=== PATIENT | male | born 1975 | race Caucasian/White ===

== ENCOUNTER 2023-10-15 15:38 | Inpatient (IN) | payer SELFPAY ==
[2023-10-15] VITALS (8 sets, daily range): BP systolic 126–153; BP diastolic 80–101; PULSE 80–107; RESP 16–35; TEMP 36.8–37.3; O2SAT 96–99; BMI 35.6
--- NOTE | 2023-10-15 16:25 | CTR_ITS ---
PROCEDURE INFORMATION: Exam: CT Abdomen And Pelvis With Contrast Exam date and time: 10/15/2023 4:48 PM Age: 48 years old Clinical indication: Nausea and vomiting; Abdominal pain; Generalized; Prior surgery; Surgery date: 6+ months; Surgery type: Hernia; Additional info: Abd pain TECHNIQUE: Imaging protocol: Computed tomography of the abdomen and pelvis with contrast. Radiation optimization: All CT scans at this facility use at least one of these dose optimization techniques: automated exposure control; mA and/or kV adjustment per patient size (includes targeted exams where dose is matched to clinical indication); or iterative reconstruction. Contrast material: OMNI 350; Contrast volume: 100 ml; Contrast route: INTRAVENOUS (IV); COMPARISON: No relevant prior studies available. RADIATION DOSE METRICS: Total DLP (mGy-cm): 1690.93 FINDINGS: Lungs: Subsegmental bibasilar atelectasis. The visualized lung bases are otherwise grossly clear. Diaphragm: No evidence of diaphragmatic defect. Liver: Hepatic steatosis. No evidence of focal hepatic lesion. Gallbladder and bile ducts: There is cholelithiasis. No inflammatory changes to suggest acute cholecystitis. No intrahepatic or extrahepatic biliary dilatation. Pancreas: Unremarkable. Spleen: Unremarkable. Adrenal glands: Unremarkable. Kidneys and ureters: No renal parenchymal abnormality. No hydronephrosis or ureteral stone. Stomach and bowel: Mild wall thickening of the distal esophagus compatible with esophagitis. No evidence of bowel obstruction or perienteric inflammatory changes. Appendix: Normal appendix. Intraperitoneal space: No evidence of free air or fluid collection. Vasculature: No aneurysmal dilatation or dissection of the abdominal aorta. The celiac trunk, SMA and IMTIAZ are grossly patent. No evidence of IVC thrombus. The portal vein, SMV and splenic veins are grossly patent. Lymph nodes: No adenopathy. Urinary bladder: Grossly unremarkable. Reproductive: Grossly unremarkable. Bones/joints: No evidence of acute fracture or aggressive osseous lesion. Prominent L4-L5 posterior disc osteophyte complex results in moderate-severe central stenosis. Consider correlation with follow-up outpatient MRI to evaluate for neural impingement. Soft tissues: No evidence of fluid collection or hematoma in the superficial soft tissues. 7 cm multi-septated fat containing ventral abdominal hernia. CT/CT abdomen pelvis w con* [id number] IMPRESSION: 1. No evidence of acute abnormality in the abdomen or pelvis. 2. Wall thickening of the distal esophagus compatible with esophagitis. Consider follow-up outpatient GI evaluation to evaluate for Vitale's esophagus.
--- NOTE | 2023-10-15 16:26 | ED_ITS ---
HPI - Nausea/Vomiting/Diarrhea 2 General: Chief complaint: Nausea/Vomiting/Diarrhea Stated complaint: throwing up for 48+ HRS Time Seen by Provider: 10/15/23 16:20 Source: patient Mode of arrival: ambulatory Limitations: no limitations History of Present Illness: 48-year-old male states he has been havi ng nausea vomiting over the last 2 days. States had multiple episodes of vomiting has not been able to tolerate anything p.o. He denies any fevers denies any diarrhea has had a history of hernia repairs in the past. Said he has had diffuse cramping pain no severe pain Associated nausea: Yes Associated symtoms: Reports nausea; Denies chest pain, dysuria or headache(s) Review of Systems 2 Const: Denies: fever(s), chills, body aches or change in appetite ENMT: Denies: throat pain or dental pain Card: Denies: chest pain Resp: Denies: dyspnea GI: Reports: abdominal pain, nausea and vomiting; Denies: diarrhea : Denies: dysuria Musc: Denies: neck pain or back pain Skin/Breast: Denies: rash Neuro: Denies: headache(s) Physical Exam 2 Const: COMMON NORMALS: no acute distress, patient oriented x3 and healthy appearing HENMT: COMMON NORMALS: normocephalic and atraumatic HEAD & SCALP: n ormocephalic and atraumatic Eye: COMMON NORMALS: Equal, round and reactive pupils present and EOMs intact bilaterally PUPIL: Yes Equal, round and reactive pupils present Neck/C-Spine: COMMON NORMALS: full ROM and supple Chest: COMMONS NORMALS: normal inspection of the chest Resp: COMMON NORMALS: normal respiratory effort Cardio: COMMON NORMALS: regular rate, regular rhythm and No murmurs present (Cardio) RATE: regular rate RHYTHM: regular rhythm GI: COMMON NORMALS: Normal to inspection, nondistended, normoactive bowel sounds present, Soft to palpation, non-tender and no masses PALPATION: Yes Soft to palpation Extremity: COMMON NORMALS: normal to inspection and full ROM Neuro: COMMON NORMALS: patient oriented x3, moves all extremities and no focal motor deficits Psych: COMMON NORMALS: mental status grossly normal, Normal thought process present and cooperative THOUGHT PROCESS: Normal thought process present Skin: COMMON NORMALS: no rashes or lesions noted and no wounds GENERAL SKIN EXAM: no rashes or lesions noted Course 2 Vital Signs: Vital signs: Vital Signs Temperature 99.2 F 10/15/23 15:56 Pulse Rate 80 10/15/23 18:36 Respiratory Rate 16 10/15/23 15:56 Blood Pressure 150/101 10/15/23 18:36 Pulse Oximetry 98 10/15/23 18:36 MDM - Nausea/Vomiting/Diarrhea Medical Decision Making Patient presents here with intractable vomiting his abdominal exam here is benign he does have an elevated white count likely stress reaction from his vomiting he has an elevated anion gap along with ketones in his urine likely from dehydration from vomiting CT showed no acute findings he has no signs of ischemic bowel I spoke to the hospitalist will admit for fluid resuscitation and to further treat his vomiting Medical Records I reviewed the patient's medical records. Lab Data I reviewed the patient's lab results. 10/15/23 16:38 10/15/23 16:38 Radiology Impressions Abdomen/Pelvis CT 10/15/23 16:25 IMPRESSION: 1. No evidence of acute abnormality in the abdomen or pelvis. 2. Wall thickening of the distal esophagus compatible with esophagitis. Consider follow-up outpatient GI evaluation to evaluate for Vitale's esophagus. Laboratory Results WBC 19.25 10^3/uL (3.29-11.43) H 10/15/23 16:38 RBC 6.28 10^6/uL (3.85-5.65) H 10/15/23 16:38 Hgb 18.10 g/dL (11.27-16.99) H 10/15/23 16:38 Hct 53.4 % (37-53) H 10/15/23 16:38 MCV 85.0 fl (82-101) 10/15/23 16:38 MCH 28.8 pg (27-33) 10/15/23 16:38 MCHC 33.9 g/dL (30-55) 10/15/23 16:38 RDW 12.4 % (12.1-15.1) 10/15/23 16:38 Plt Count 384 10^3/cmm (157-399) 10/15/23 16:38 MPV 9.5 fL (7.4-10.4) 10/15/23 16:38 Neut % (Auto) 87.9 % 10/15/23 16:38 Lymph % (Auto) 6.3 % 10/15/23 16:38 Angelina % (Auto) 5.2 % 10/15/23 16:38 Eos % (Auto) 0.0 % 10/15/23 16:38 Baso % (Auto) 0.1 % 10/15/23 16:38 Neut # (Auto) 16.90 10^3/uL (1.8-7.7) H 10/15/23 16:38 Lymph # (Auto) 1.2 10^3/uL (0.8-4.8) 10/15/23 16:38 Angelina # (Auto) 1.0 10^3/uL (0.2-0.9) H 10/15/23 16:38 Eos # (Auto) 0.0 10^3/uL (0.0-0.8) 10/15/23 16:38 Baso # (Auto) 0.0 10^3/uL (0.0-0.1) 10/15/23 16:38 Nucleated RBC % (auto) 0 % 10/15/23 16:38 Nucleated RBCs # 0.0 /100WBC 10/15/23 16:38 Specimen Type Arterial 10/15/23 17:57 Sample Site Radial, right 10/15/23 17:57 ABG pH 7.39 (7.35-7.45) 10/15/23 17:57 ABG pCO2 27.4 mmHg (35-45) L 10/15/23 17:57 ABG pO2 93.3 mmHg (80.0-100.0) 10/15/23 17:57 ABG PO2/FiO2 Ratio 0 10/15/23 17:57 ABG HCO3 16.5 mmol/L (22-26) L 10/15/23 17:57 ABG Base Excess -6.5 mmol/L (-2.0-2.0) L 10/15/23 17:57 Blas Test Pos 10/15/23 17:57 Hematocrit 54.5 % (42-52) H 10/15/23 17:57 O2 Delivery Device Room air 10/15/23 17:57 FiO2 21.0 % 10/15/23 17:57 Textile Machinery Sales Representative ID Ed 10/15/23 17:57 Sodium 134 mmol/L (136-145) L 10/15/23 16:38 Potassium 4.1 mmol/L (3.5-5.1) 10/15/23 16:38 Chloride 91 mmol/L (98-107) L 10/15/23 16:38 Carbon Dioxide 17 mmol/L (22-29) L 10/15/23 16:38 Anion Gap 30.1 (5-19) H 10/15/23 16:38 BUN 22 mg/dL (6-20) H 10/15/23 16:38 Creatinine 0.9 mg/dL (0.7-1.2) 10/15/23 16:38 GFR Calculation 90.8 mL/min (90-130) 10/15/23 16:38 Glucose 341 mg/dL (65-115) H 10/15/23 16:38 Calculated Osmolality 295 mOsm/kg (285-295) 10/15/23 16:38 Lactic Acid 2.1 mmol/L (0.5-2.2) 10/15/23 16:38 Calcium 9.8 mg/dL (8.5-10.5) 10/15/23 16:38 Total Bilirubin 1.1 mg/dL (0.15-1.2) 10/15/23 16:38 AST 10 U/L (0-40) 10/15/23 16:38 ALT 13 U/L (0-41) 10/15/23 16:38 Alkaline Phosphatase 135 U/L (40-130) H 10/15/23 16:38 Total Protein 8.3 g/dL (6.6-8.7) 10/15/23 16:38 Albumin 4.7 g/dL (3.5-5.2) 10/15/23 16:38 Globulin 3.6 g/dL (1.3-4.6) 10/15/23 16:38 Lipase 14 U/L (13-60) 10/15/23 16:38 Urine Color Yellow (Yellow) 10/15/23 18:24 Urine Appearance Clear (CLEAR) 10/15/23 18:24 Urine pH 5 (5-7) 10/15/23 18:24 Ur Specific [place] 1.015 (1.005-1.030) 10/15/23 18:24 Urine Protein Trace (Negative) 10/15/23 18:24 Urine Glucose (UA) 4+ (Normal) H 10/15/23 18:24 Urine Ketones 3+ (Negative) H 10/15/23 18:24 Urine Blood Neg (Negative) 10/15/23 18:24 Urine Nitrate Negative (Negative) 10/15/23 18:24 Urine Bilirubin Neg (Negative) 10/15/23 18:24 Urine Urobilinogen Norm mg/dL (Negative) 10/15/23 18:24 Ur Leukocyte Esterase Negative (Negative) 10/15/23 18:24 Amorphous Sediment Not Reportable 10/15/23 18:24 All radiology interpretation(s) finalized by discharge Discharge Plan Discharge Patient Disposition: Admitted As Inpatient Clinical Impression: Intractable vomiting, Dehydration Condition: Stable Coding Level of Care Code ED Postage Machine Operator for Roge Andujar
[2023-10-15] MEDS: sodium chloride 0.9% 1,000 ML 999 ML IV ×2 (16:37→17:53)
[2023-10-15] MEDS: ondansetron 2 mg/ML SDV 2 mL 4 MG IVP ×2 (16:39→23:34)
[2023-10-15] MEDS: iohexol 350 mg/mL 500 mL Btl (per mL) IV (16:48)
[2023-10-15 16:50] LABS: Basophils % 0.1 %; Hematocrit 53.4 % (37-53); Lymphocytes # 1.2 10^3/uL (0.8-4.8); Lymphocytes % 6.3 %; Mean Corpuscular HGB Conc 33.9 g/dL (30-55); Mean Corpuscular Hemoglobin 28.8 pg (27-33); Mean Platelet Volume 9.5 fL (7.4-10.4); Monocytes % 5.2 %; Neutrophils % 87.9 %; Nucleated Red Blood Cells % 0 %; Platelet Count 384 10^3/cmm (157-399); Red Blood Count 6.28 10^6/uL (3.85-5.65); Red Cell Distribution Width 12.4 % (12.1-15.1); White Blood Count 19.25 10^3/uL (3.29-11.43)
[2023-10-15 17:05] LABS: Alanine Aminotransferase 13 U/L (0-41); Albumin Level 4.7 g/dL (3.5-5.2); Alkaline Phosphatase 135 U/L (40-130); Anion Gap 30.1 (5-19); Aspartate Amino Transferase 10 U/L (0-40); Blood Urea Nitrogen 22 mg/dL (6-20); Calcium 9.8 mg/dL (8.5-10.5); Carbon Dioxide 17 mmol/L (22-29); Chloride 91 mmol/L (98-107); Creatinine Clr Calc Pharmacy 136.7613; Globulin 3.6 g/dL (1.3-4.6); Glomerular Filtration Rate 90.8 mL/min (90-130); Glucose 341 mg/dL (65-115); Lipase 14 U/L (13-60); Osmolality Calculated 295 mOsm/kg (285-295); Potassium 4.1 mmol/L (3.5-5.1); Sodium 134 mmol/L (136-145); Total Bilirubin 1.1 mg/dL (0.15-1.2); Total Protein 8.3 g/dL (6.6-8.7)
[2023-10-15 17:30] LABS: Lactic Sepsis W/Reflex 2.1 mmol/L (0.5-2.2)
[2023-10-15 18:09] LABS: ABG PCO2 27.4 mmHg (35-45); ABG PH Result 7.39 (7.35-7.45); Arterial Blood Gas Hematocrit 54.5 % (42-52); Base Excess ABG -6.5 mmol/L (-2.0-2.0); Blood Gas Allen Test Pos; Blood Gas Operator Identificat ED; Blood Gas Sample Site Radial, right; Blood Gas Sample Type Arterial; HCO3 ABG 16.5 mmol/L (22-26); Oxygen Device ROOM AIR; PO2 ABG 93.3 mmHg (80.0-100.0); PO2 FiO2 Ratio Arterial Blood 0
[2023-10-15 18:49] LABS: Specific Gravity, Urine 1.015 (1.005-1.030); Urine Appearance Clear (CLEAR); Urine Color Yellow (Yellow); pH Urine 5 (5-7)
[2023-10-15 18:50] LABS: Add Urine Microscopic? YES; Bilirubin Urine Neg (Negative); Blood Urine Neg (Negative); Glucose Urine UA 4+ (Normal); Ketones Urine 3+ (Negative); Leukocyte Esterase Urine Negative (Negative); Nitrate Urine Negative (Negative); Protein Urine Trace (Negative); Urobilinogen Urine Norm (Negative)
[2023-10-15 18:54] LABS: Reflex Lactate Order REFLEX LACTIC ORDERD
[2023-10-15 19:20] LABS: Add Urine Culture? No; WBC Urine 0-4 /hpf (0-5)
[2023-10-15 19:40] LABS: Lactic Acid level (Lactate) 1.6 mmol/L (0.5-2.2)
--- NOTE | 2023-10-15 20:20 | P.HP_ITS ---
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 No fever chest pain or shortness of breath. Patient does not smoke or drink alcohol. No previous diagnosis of diabetes. Patient is stating that he has lost significant weight he used to weigh 400 pounds now he is down to 250 pounds in the last few months he has lost 30 pounds, he has not noticed blurry vision, frequent urination or polyphagia. In the ER patient was acidotic with signs of dehydration, I requested A1c level along serum ketones to rule out DKA, lactic acid is normal but his anion gap is high with acidosis Significant leukocytosis of 19,000, CT abdomen pelvis esophagitis, no other remarkable findings Review of Systems 2 Const: Reports: chills, body aches, fatigue and malaise Eyes: Denies: change in vision ENMT: Denies: throat pain Card: Denies: chest pain Resp: Denies: dyspnea GI: Denies: abdominal pain : Denies: flank pain Musc: Denies: neck pain Skin/Breast: Denies: rash Neuro: Denies: headache(s) Psych: Denies: anxiety Medications/Allergies Allergies Allergy/AdvReac Type Severity Reaction Status Date / Time No Known Allergies Allergy Verified 10/15/23 15:58 PFSH Acute 2 PFSH: Medical History (Updated 10/15/23 @ 21:09 by Chris Mane MD) No pertinent past medical history Surgical History H/O umbilical hernia repair Family History (Updated 10/15/23 @ 21:09 by Chris Mane MD) Other Diabetes Diabetes mellitus, type 2 Social History (Updated 10/15/23 @ 21:10 by Chris Mane MD) Smoking and tobacco/nicotine status: former use of tobacco/nicotine Alcohol intake: never Household members: family Housing: House Vitals/I&O/Wt Last Vital Signs Temp 99.2 F 10/15/23 15:56 Pulse 80 10/15/23 18:36 Resp 16 10/15/23 15:56 BP 150/101 10/15/23 18:36 Pulse Ox 98 10/15/23 18:36 10/15/23 10/15/23 10/15/23 06:59 14:59 22:59 Intake Total 1999 Balance 1999 Weight last 48 hrs Weight 119.295 kg Physical Exam 2 Narrative: Morbid obese male Currently complain of nausea Assessment Abdomen nontender Distended Gallstones present No sign of rigidity guarding or peritonitis Pleasant cooperative Nonfocal neuroexam Currently on room air Hemoglobin stable at the bedside Data 10/15/23 16:38 10/15/23 16:38 A&P Assessment and plan (1) Intractable vomiting: (2) Dehydration: (3) Metabolic acidosis: (4) Hyperglycemia: Plan Intractable nausea vomiting No sign of pancreatitis Rule out DKA Check serum ketones and hemoglobin A1c level Hyperglycemia with metabolic acidosis Lactic acid normal No significant uremia Patient does not take any medications at home Metabolic acidosis, High anion gap acidosis No lactic acidemia Rule out DKA No significant uremia No concern for iron poisoning Patient denies alcohol, check drug screen Will keep patient on clear liquid diet Start IV fluids Full code DVT prophylaxis on board Significant hemoconcentration related to dehydration Last probably was on Thursday Continue IV fluids Polycythemia related to dehydration Significant leukocytosis likely stress leukemoid reaction Considering recurrent nausea vomiting to complete the workup I will order request EKG and troponin For metabolic syndrome I will request lipid panel, TSH, B12, echo Attestations 2 Medical Necessity Statement*: Anticipating more than 2 midnights for significant dehydration patient not able to eat anything at this point Diagnoses Intractable vomiting R11.10 Dehydration E86.0 Metabolic acidosis E87.20 Hyperglycemia R73.9
[2023-10-15 21:04] LABS: Ketone (Acetest) Serum Negative (Negative)
[2023-10-15] MEDS: sodium chloride 0.9% 1,000 ML 100 ML IV (21:09)
--- NOTE | 2023-10-15 21:12 | USCV_ITS ---
Say Bosch Age: 48 Gender: M : 1975 Exam Date: 10/15/2023 21:45 Ordering Phys: Chris Mane MD Technologist: WHIT Exam Location: [facility] [place] Indication: UA. No history of cardiac intervention per patient. BP: 132 / 80 HR: 85 Rhythm: Sinus Technical Quality: Adequate MEASUREMENTS (Male / Female) Normal Values 2D ECHO LV Diastolic Diameter PLAX 4.6 cm 4.2 - 5.9 / 3.9 - 5.3 cm IVS Diastolic Thickness 1.7 cm 0.6 - 1.0 / 0.6 - 0.9 cm IVS Systolic Thickness 1.6 cm LVPW Diastolic Thickness 1.2 cm 0.6 - 1.0 / 0.6 - 0.9 cm LVPW Systolic Thickness 1.5 cm LV Ejection Fraction 2D Teich 64.3 % LV Ejection Fraction MOD 2C 50.1 % LV Ejection Fraction 2C AL 50.4 % LA Diameter 3.2 cm Aorta at Sinotubular Diameter 4.0 cm IVC Diameter 1.1 cm M-MODE LA Ao Ratio MM 1.2 AV Cusp Separation MM 2.8 cm DOPPLER LVOT Peak Velocity 82.0 cm/s MV Peak Velocity 89.0 cm/s MV Area PHT 4.0 cm squared Mitral E to A Ratio 1.2 TV Peak E Velocity 55.0 cm/s PV Peak Velocity 101.0 cm/s FINDINGS Left Ventricle Left ventricle is normal size. LV systolic function is normal with EF of 60-65%. No regional wall motion abnormalities are seen. Right Ventricle Normal in size and function Right Atrium Normal in size Left Atrium Normal in size Mitral Valve Structurally normal mitral valve. Trace mitral regurgitation. Aortic Valve Grossly normal Tricuspid Valve Trace tricuspid regurgitation. Insufficient TR jet to calculate RVSP Pulmonic Valve Mild pulmonic regurgitation. Pericardium Normal Aorta Ascending aorta is dilated with diameter of 4.22cm IVC Appears to be normal CONCLUSIONS LV systolic function is normal with EF of 60-65% Trace mitral regurgitation Trace tricuspid regurgitation. Mild pulmonic regurgitation Ascending aorta is dilated with diameter of 4.22cm No comparison studies are available. Ricky Weinstein MD (Electronically Signed) Final Date: 16 October 2023 09:14 S
[2023-10-15 21:21] LABS: Estmated Average Glucose 246; Hemoglobin A1C 10.2 % (4.0-6.0)
[2023-10-15 21:33] LABS: Procalcitonin 0.06 ng/mL (0-0.5); Thyroid Stimulating Hormone 0.98 uIU/mL (0.27-4.20); Vitamin B12 1721 pg/mL (232-1245)
[2023-10-15 21:59] LABS: Troponin(5th) Baseline 11 ng/L (0-15)
[2023-10-15 22:01] LABS: Alcohol Level < 10 mg/dL (0-10)
[2023-10-15] MEDS: metoclopramide 5 mg/mL SDV 2 mL IVP (22:16)
[2023-10-15] MEDS: enoxaparin 40 mg/0.4 mL Syringe SUBCUT (22:16)
[2023-10-15] MEDS: lactated ringers 1,000 ML 100 ML IV (22:33)
--- NOTE | 2023-10-15 23:23 | PC.NURSE ---
Report called to AYDEE Olvera and patient transferred to ICU via bed. All belongings are with patient and .
[2023-10-15 23:43] LABS: Troponin 5 2HR 11.39 ng/L (0-15); Troponin 5 2HR Delta 0.39 ABS# (0-10)
[2023-10-15 23:44] LABS: Blood Urea Nitrogen 22 mg/dL (6-20); Calcium 8.6 mg/dL (8.5-10.5); Carbon Dioxide 16 mmol/L (22-29); Chloride 98 mmol/L (98-107); Glomerular Filtration Rate 121.4 mL/min (90-130); Glucose 251 mg/dL (65-115); Osmolality Calculated 292 mOsm/kg (285-295); Sodium 135 mmol/L (136-145)
[2023-10-15] MEDS: sodium bicarbonate 150 MEQ in dextrose 5% 1,000 ML 100 MEQ IV (23:59)
[2023-10-16] VITALS (64 sets, daily range): BP systolic 97–170; BP diastolic 60–102; PULSE 71–110; RESP 6–29; TEMP 36.2–37.1; O2SAT 92–99
[2023-10-16] MEDS: sodium chlor 0.9% + KCl 40 mEq 40 MEQ/1,000 ML BAG 100 MEQ IV (00:01)
[2023-10-16] MEDS: sodium bicarbonate 8.4% 1 mEq/mL 50mL Syr 150 MEQ (00:02)
[2023-10-16] MEDS: insulin regular-human 250 UNIT in sodium chloride 0.9% 250 ML 12.6300000000000008 UNIT IV (00:09)
[2023-10-16 00:24] LABS: Glucose Point of Care 252 mg/dL (70-110)
[2023-10-16 01:28] LABS: Glucose Point of Care 185 mg/dL (70-110)
[2023-10-16 02:18] LABS: Glucose Point of Care 191 mg/dL (70-110)
--- NOTE | 2023-10-16 03:12 | ECG_ITS ---
[facility] Test Date: 2023-10-16 Pat Name: Say Bosch Department: Room: ICU01 Gender: Male Clinical Immunologist: : 1975 Requested By: Chris Mane Order Number: [id number] [place] MD: Ricky Weinstein M.D. Measurements Intervals [place] Rate: 109 P: 39 MD: 147 QRS: 26 QRSD: 85 T: 31 QT: 334 QTc: 450 Interpretive Statements SINUS TACHYCARDIA WITH OCCASIONAL VENTRICULAR PREMATURE COMPLEXES No previous ECG available for comparison Electronically Signed On 10-16-2023 8:16:12 CDT by Ricky Weinstein M.D. [id number]
[2023-10-16 03:23] LABS: Basophils % 0.2 %; Eosinophils % 0.1 %; Hematocrit 47.7 % (37-53); Lymphocytes # 1.6 10^3/uL (0.8-4.8); Lymphocytes % 9.8 %; Mean Corpuscular Volume 85.5 fl (82-101); Mean Platelet Volume 9.4 fL (7.4-10.4); Monocytes # 1.4 10^3/uL (0.2-0.9); Monocytes % 8.7 %; Neutrophils # 13.34 10^3/uL (1.8-7.7); Neutrophils % 80.7 %; Nucleated Red Blood Cells % 0 %; Platelet Count 309 10^3/cmm (157-399); Red Blood Count 5.58 10^6/uL (3.85-5.65); Red Cell Distribution Width 12.4 % (12.1-15.1); White Blood Count 16.52 10^3/uL (3.29-11.43)
[2023-10-16 03:24] LABS: Glucose Point of Care 184 mg/dL (70-110)
[2023-10-16 03:46] LABS: Troponin 5 6HR 12.06 ng/L (0-15); Troponin 5 6HR Delta 1.06 ng/L (0-12)
[2023-10-16 03:49] LABS: Phosphorus 2.1 mg/dL (2.5-4.5)
[2023-10-16 03:50] LABS: Amphetamines Screen Urine Negative (Negative); Barbiturates Screen Urine Negative (Negative); Benzodiazepines Screen Urine Negative (Negative); Cocaine Screen Urine Negative (Negative); Opiate Screen Urine Negative (Negative); PCP Screen Urine Negative (Negative); THC Screen Urine Positive (Negative)
[2023-10-16 03:58] LABS: Alanine Aminotransferase 11 U/L (0-41); Albumin Level 4.1 g/dL (3.5-5.2); Alkaline Phosphatase 109 U/L (40-130); Aspartate Amino Transferase 8 U/L (0-40); Blood Urea Nitrogen 22 mg/dL (6-20); C Reactive Protein 6.1 mg/L (0.0-4.9); Calcium 8.7 mg/dL (8.5-10.5); Carbon Dioxide 19 mmol/L (22-29); Chloride 102 mmol/L (98-107); Creatinine Clr Calc Pharmacy 205.1419; Globulin 2.5 g/dL (1.3-4.6); Glucose 194 mg/dL (65-115); Magnesium 2.1 mg/dL (1.7-2.3); Osmolality Calculated 295 mOsm/kg (285-295); Sodium 138 mmol/L (136-145); Total Protein 6.6 g/dL (6.6-8.7)
[2023-10-16 04:00] LABS: Anion Gap 21.1 (5-19); Potassium 4.1 mmol/L (3.5-5.1)
[2023-10-16 04:18] LABS: Glucose Point of Care 204 mg/dL (70-110)
[2023-10-16 05:28] LABS: Glucose Point of Care 210 mg/dL (70-110)
[2023-10-16] MEDS: ondansetron 2 mg/ML SDV 2 mL 4 MG IVP ×4 (05:36→19:37)
[2023-10-16 06:13] LABS: Glucose Point of Care 208 mg/dL (70-110)
[2023-10-16 07:36] LABS: Glucose Point of Care 268 mg/dL (70-110)
[2023-10-16] MEDS: D5-NS 0.45% + KCL 20 mEq 20 MEQ/1,000 ML BAG 75 MEQ IV ×2 (07:59→17:38)
[2023-10-16 08:12] LABS: Anion Gap 21.9 (5-19); Blood Urea Nitrogen 20 mg/dL (6-20); Calcium 8.9 mg/dL (8.5-10.5); Carbon Dioxide 20 mmol/L (22-29); Chloride 100 mmol/L (98-107); Creatinine Clr Calc Pharmacy 210.6688; Glucose 236 mg/dL (65-115); Osmolality Calculated 296 mOsm/kg (285-295); Potassium 3.9 mmol/L (3.5-5.1); Sodium 138 mmol/L (136-145)
[2023-10-16 10:47] LABS: Glucose Point of Care 239 mg/dL (70-110)
--- NOTE | 2023-10-16 12:57 | P.PN_ITS ---
Subjective 2 Subjective: Seen this morning. Anion gap 21.9. Still on insulin drip. Awaiting next BMP. A1c 10.2. Patient states he feels better. Vitals/I&O/Wt Last Vital Signs Temp 98.8 F 10/16/23 09:45 Pulse 83 10/16/23 12:45 Resp 17 10/16/23 07:42 BP 136/94 10/16/23 12:45 Pulse Ox 95 10/16/23 12:45 O2 Del Method Room Air 10/16/23 07:42 10/15/23 10/16/23 10/16/23 22:59 06:59 14:59 Intake Total 2180 / 2180 27.447 / 2207.447 1.481 / 1.481 Output Total 900 / 900 Balance 2180 / 2180 -872.553 / 1307.447 1.481 / 1.481 Weight last 48 hrs Weight 125.645 kg Weight 119.295 kg Weight 119.295 kg Physical Exam 2 Narrative: Morbid obese male No acute distress laying in bed appearing comfortable at this time. States he feels better. Abdomen nontender Distended Gallstones present No sign of rigidity guarding or peritonitis Pleasant cooperative Nonfocal neuroexam Currently on room air Hemoglobin stable Clear to auscultation bilaterally no wheezes no rhonchi Normal S1-S2 Regular rate rhythm. Data 10/16/23 03:18 10/16/23 07:15 A&P Assessment and plan (1) Intractable vomiting: (2) Dehydration: (3) Metabolic acidosis: (4) Hyperglycemia: Plan #DKA #New onset diabetes mellitus #Nausea vomiting secondary to above #Gallstones #Dehydration, hemoconcentration #Leukocytosis, possibly stress related #Metabolic acidosis, high anion gap secondary to hyperglycemia ? Continue on insulin drip ? BMP every 4 hours ? Continue D5 half-normal saline at this time ? Replete potassium as needed, magnesium, phosphorus ? Zofran for nausea ? Bridge to Lantus once anion gap less than 14. ? Diabetic education prior to discharge. Discussed with dietitian who will talk to patient. ? Stop bicarb drip at this time. ? Hemoglobin A1c 10.2 ? Urine drug screen negative, -Labs initially hemoconcentrated. Improved with IV fluids. -Troponins negative x 3 ? Lipid panel pending ? TSH 0.98, B12 1721 ? Echo shows EF 6065%. Ascending aorta dilated with diameter 4.22. This will need to be monitored as an outpatient. Full code DVT prophylaxis: Lovenox 40 daily Attestations 2 Medical Necessity Statement*: Continue ICU level care. Patient currently on DKA protocol with insulin drip. Expect another 48 hours stay Diagnoses Intractable vomiting R11.10 Dehydration E86.0 Metabolic acidosis E87.20 Hyperglycemia R73.9
[2023-10-16 14:17] LABS: Blood Urea Nitrogen 17 mg/dL (6-20); Calcium 8.4 mg/dL (8.5-10.5); Carbon Dioxide 21 mmol/L (22-29); Chloride 99 mmol/L (98-107); Glucose 234 mg/dL (65-115); Magnesium 2.1 mg/dL (1.7-2.3); Osmolality Calculated 289 mOsm/kg (285-295); Phosphorus 1.8 mg/dL (2.5-4.5); Sodium 135 mmol/L (136-145)
[2023-10-16 14:18] LABS: Anion Gap 18.7 (5-19); Creatinine Clr Calc Pharmacy 252.8026; Potassium 3.7 mmol/L (3.5-5.1)
[2023-10-16 16:21] LABS: Glucose Point of Care 198 mg/dL (70-110)
[2023-10-16 16:21] LABS: Glucose Point of Care 210 mg/dL (70-110)
[2023-10-16 18:18] LABS: Blood Urea Nitrogen 18 mg/dL (6-20); Calcium 8.7 mg/dL (8.5-10.5); Carbon Dioxide 22 mmol/L (22-29); Chloride 103 mmol/L (98-107); Creatinine Clr Calc Pharmacy 316.0032; Glomerular Filtration Rate 231.6 mL/min (90-130); Glucose 215 mg/dL (65-115); Osmolality Calculated 294 mOsm/kg (285-295); Sodium 138 mmol/L (136-145)
[2023-10-16 18:19] LABS: Anion Gap 16.6 (5-19); Potassium 3.6 mmol/L (3.5-5.1)
[2023-10-16 18:40] LABS: Glucose Point of Care 203 mg/dL (70-110)
--- NOTE | 2023-10-16 18:40 | PC.NURSE ---
uneventful shift, goal for anion gap per Dr. Sierra is 14
--- NOTE | 2023-10-16 19:31 | ECG_ITS ---
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 Measurements Intervals [place] Rate: 81 P: 26 [place]: 154 QRS: 12 QRSD: 87 T: 21 QT: 367 QTc: 427 Interpretive Statements SINUS RHYTHM Compared to ECG 10/16/2023 01:21:04 Sinus tachycardia no longer present Ventricular premature complex(es) no longer present Electronically Signed On 10-16-2023 22:02:45 CDT by Ricky Weinstein M.D. [id number]
[2023-10-16 19:57] LABS: Glucose Point of Care 208 mg/dL (70-110)
[2023-10-16 21:07] LABS: Anion Gap 15.4 (5-19); Blood Urea Nitrogen 16 mg/dL (6-20); Calcium 8.6 mg/dL (8.5-10.5); Carbon Dioxide 23 mmol/L (22-29); Chloride 100 mmol/L (98-107); Creatinine Clr Calc Pharmacy 252.8026; Glucose 230 mg/dL (65-115); Osmolality Calculated 288 mOsm/kg (285-295); Potassium 3.4 mmol/L (3.5-5.1); Sodium 135 mmol/L (136-145)
[2023-10-16] MEDS: enoxaparin 40 mg/0.4 mL Syringe SUBCUT (21:24)
[2023-10-16 21:27] LABS: Phosphorus 1.8 mg/dL (2.5-4.5)
[2023-10-16 21:34] LABS: Glucose Point of Care 208 mg/dL (70-110)
[2023-10-16 22:35] LABS: Glucose Point of Care 208 mg/dL (70-110)
[2023-10-16 23:43] LABS: Glucose Point of Care 209 mg/dL (70-110)
[2023-10-17] VITALS (25 sets, daily range): BP systolic 98–177; BP diastolic 64–105; PULSE 70–102; RESP 10–28; TEMP 36.7–37.1; O2SAT 90–98
[2023-10-17 00:11] LABS: Glucose Point of Care 222 mg/dL (70-110)
[2023-10-17 00:37] LABS: Glucose Point of Care 209 mg/dL (70-110)
[2023-10-17 01:36] LABS: Glucose Point of Care 200 mg/dL (70-110)
[2023-10-17 01:45] LABS: Anion Gap 16.2 (5-19); Blood Urea Nitrogen 15 mg/dL (6-20); Calcium 8.5 mg/dL (8.5-10.5); Carbon Dioxide 24 mmol/L (22-29); Chloride 99 mmol/L (98-107); Creatinine Clr Calc Pharmacy 252.8026; Glucose 222 mg/dL (65-115); Osmolality Calculated 290 mOsm/kg (285-295); Potassium 3.2 mmol/L (3.5-5.1); Sodium 136 mmol/L (136-145)
[2023-10-17 02:33] LABS: Glucose Point of Care 216 mg/dL (70-110)
[2023-10-17] MEDS: ondansetron 2 mg/ML SDV 2 mL 4 MG IVP ×3 (02:46→23:04)
[2023-10-17] MEDS: LIDOCAINE 1% 25 ML (02:58)
[2023-10-17] MEDS: lidocaine 1% 5 ML in potassium chloride premix 100 ML 25 ML IV (02:59)
[2023-10-17 03:47] LABS: Glucose Point of Care 209 mg/dL (70-110)
[2023-10-17 04:36] LABS: Glucose Point of Care 234 mg/dL (70-110)
[2023-10-17 05:37] LABS: Glucose Point of Care 203 mg/dL (70-110)
[2023-10-17 05:42] LABS: Basophils % 0.1 %; Eosinophils % 0.2 %; Hematocrit 48.5 % (37-53); Lymphocytes # 1.8 10^3/uL (0.8-4.8); Mean Corpuscular HGB Conc 33.4 g/dL (30-55); Mean Corpuscular Hemoglobin 28.9 pg (27-33); Mean Corpuscular Volume 86.6 fl (82-101); Mean Platelet Volume 9.8 fL (7.4-10.4); Monocytes # 1.2 10^3/uL (0.2-0.9); Monocytes % 8.8 %; Neutrophils # 10.49 10^3/uL (1.8-7.7); Neutrophils % 77.4 %; Nucleated Red Blood Cells % 0 %; Platelet Count 317 10^3/cmm (157-399); Red Cell Distribution Width 12.3 % (12.1-15.1); White Blood Count 13.57 10^3/uL (3.29-11.43)
[2023-10-17 06:00] LABS: Anion Gap 16.2 (5-19); Blood Urea Nitrogen 16 mg/dL (6-20); Calcium 8.5 mg/dL (8.5-10.5); Carbon Dioxide 24 mmol/L (22-29); Chloride 100 mmol/L (98-107); Creatinine Clr Calc Pharmacy 252.8026; Glucose 211 mg/dL (65-115); Osmolality Calculated 291 mOsm/kg (285-295); Potassium 3.2 mmol/L (3.5-5.1); Sodium 137 mmol/L (136-145)
[2023-10-17 06:31] LABS: Glucose Point of Care 216 mg/dL (70-110)
[2023-10-17] MEDS: D5-NS 0.45% + KCL 20 mEq 20 MEQ/1,000 ML BAG 75 MEQ IV (06:36)
[2023-10-17 07:34] LABS: Glucose Point of Care 228 mg/dL (70-110)
[2023-10-17 08:26] LABS: Glucose Point of Care 215 mg/dL (70-110)
[2023-10-17 09:23] LABS: Glucose Point of Care 226 mg/dL (70-110)
[2023-10-17 10:37] LABS: Glucose Point of Care 231 mg/dL (70-110)
[2023-10-17 10:54] LABS: Phosphorus 1.8 mg/dL (2.5-4.5)
[2023-10-17] MEDS: sodium chloride 0.9% 1,000 ML 125 ML IV ×2 (11:16→17:35)
[2023-10-17] MEDS: insulin glargine 100 units/1 mL 15 UNIT SUBCUT ×2 (11:16→20:32)
[2023-10-17 11:30] LABS: Glucose Point of Care 202 mg/dL (70-110)
[2023-10-17] MEDS: metoclopramide 5 mg/mL SDV 2 mL 10 MG IVP (12:17)
[2023-10-17] MEDS: insulin lispro 100 unit/1 mL SUBCUT ×3 (12:41→20:31)
[2023-10-17 14:20] LABS: Glucose Point of Care 229 mg/dL (70-110)
--- NOTE | 2023-10-17 14:36 | P.PN_ITS ---
Subjective 2 Subjective: Seen this morning. at bedside. Patient does not have insurance and has no way of getting his medication. He states that he was taking metformin of the black market in the past about 4 to 500 mg a day. And he has checked his blood sugar at home using his mom's glucose monitor which has been in the 3-400 range usually. Family has feeling on a [employer] application so patient can get his medications. Discussed with him that he will now be on insulin and metformin. He will need to have a primary care doctor as well. We will give a referral at discharge. Patient and in agreement. Vitals/I&O/Wt Last Vital Signs Temp 98.7 F 10/17/23 09:00 Pulse 86 10/17/23 12:00 Resp 15 10/17/23 12:00 BP 144/73 10/17/23 12:00 Pulse Ox 98 10/17/23 12:00 O2 Del Method Room Air 10/17/23 12:00 10/16/23 10/17/23 10/17/23 22:59 06:59 14:59 Intake Total 1129.972 / 1131.453 634.515 / 1765.968 205 / 205 Output Total 1999 / 1999 900 / 900 Balance -870.028 / -868.547 634.515 / -234.032 -695 / -695 Weight last 48 hrs Weight 125.191 kg Weight 125.645 kg Weight 119.295 kg Weight 119.295 kg Physical Exam 2 Narrative: General: Alert oriented x3, patient seen sitting up in bed appearing comfortable at this time. at bedside. Says he is slightly nauseous. HEENT: Normocephalic, atraumatic, EOMI, breathing room air. Cardio: Regular rate rhythm, normal S1-S2, Respiratory: Clear to auscultation bilaterally no wheezes no rhonchi GI: Abdomen soft, nontender, nondistended, bowel sounds +, ventral abdominal hernia appreciated. Behavior: Appropriate and cooperative Extremities: Unremarkable Data 10/17/23 03:52 10/17/23 03:52 Micro: Microbiology 10/16/23 13:18 Blood Culture - Preliminary Blood NEGATIVE TO DATE 10/16/23 13:24 Blood Culture - Preliminary Blood NEGATIVE TO DATE A&P Assessment and plan (1) Intractable vomiting: (2) Dehydration: (3) Metabolic acidosis: (4) Hyperglycemia: Plan #DKA?resolved #New onset diabetes mellitus, insulin-dependent #Nausea vomiting secondary to above #Gallstones #Dehydration, hemoconcentration?resolved #Leukocytosis, possibly stress related?improving #Metabolic acidosis, high anion gap secondary to hyperglycemia?resolved #L4-L5 moderate to severe central canal stenosis. ? Insulin drip stopped ? Lantus 15 units daily started ? Metformin 500 twice daily started - Medium dose intensity sliding scale insulin. ? Zofran for nausea. If ineffective may use Reglan. Discussed with RN. ? Replete potassium as needed, magnesium, phosphorus ? Zofran for nausea ? Diabetic education prior to discharge. Dietitian notified. ? Hemoglobin A1c 10.2 ? Urine drug screen negative, -Troponins negative x 3 ? Lipid panel pending ? TSH 0.98, B12 1721 ? Echo shows EF 6065%. Ascending aorta dilated with diameter 4.22. This will need to be monitored as an outpatient. ? Patient will need EGD outpatient to rule out Vitale's esophagus. ? I will start him on Protonix 40 daily at this time. ? He will need orthopedic surgery referral as an outpatient and evaluation with MRI rule out neural impingement. He has severe moderate to severe central stenosis. ? Patient does not have insurance. He wants to discuss with social science analyst to figure out [employer] application so he can get his medications and further treatment. ? Will need vascular surgery referral at discharge for ascending aorta dilation diameter 4.22 cm. This will need to be monitored. ? Patient will need to be set up with a primary care doctor at discharge. ? Discussed all the above with patient and his . Full code DVT prophylaxis: Lovenox 40 daily If sugars continue to remain stable by afternoon he may be transferred to floor. Attestations 2 Medical Necessity Statement*: Patient needs continued hospitalization for monitoring of blood sugars. We need to ensure blood sugars are stable prior to discharge. Patient has no way of getting his medications and will need meds to beds. He wants to discuss his care with social science analyst therefore plan for discharge on Thursday. Diagnoses Intractable vomiting R11.10 Dehydration E86.0 Metabolic acidosis E87.20 Hyperglycemia R73.9
[2023-10-17 15:08] LABS: Chol HDL Ratio 7.62 mg/dL (1.0-5.00); Cholesterol 198 mg/dL (0-200); HDL Cholesterol 26 mg/dL (60-100); LDL Cholesterol Calculated 140 mg/dL (50-129); Triglycerides 161 mg/dL (0-150); VLDL Cholestrol Calculation 32 mg/dL (0-30)
[2023-10-17] MEDS: lisinopril 10 mg Tablet PO (15:35)
[2023-10-17] MEDS: metformin 500 mg Tablet PO (17:35)
[2023-10-17 17:42] LABS: Glucose Point of Care 195 mg/dL (70-110)
[2023-10-17 20:29] LABS: Glucose Point of Care 185 mg/dL (70-110)
[2023-10-17] MEDS: enoxaparin 40 mg/0.4 mL Syringe SUBCUT (20:31)
[2023-10-17] MEDS: atorvastatin 40 mg Tablet PO (20:31)
[2023-10-17 21:46] LABS: Glucose Point of Care 188 mg/dL (70-110)
[2023-10-18] VITALS (18 sets, daily range): BP systolic 118–164; BP diastolic 62–96; PULSE 67–95; RESP 3–27; TEMP 36.4–37.1; O2SAT 89–98
[2023-10-18] MEDS: sodium chloride 0.9% 1,000 ML 125 ML IV ×3 (01:33→17:13)
[2023-10-18 03:42] LABS: Basophils % 0.3 %; Eosinophils # 0.1 10^3/uL (0.0-0.8); Eosinophils % 0.5 %; Hematocrit 43.5 % (37-53); Lymphocytes # 1.7 10^3/uL (0.8-4.8); Lymphocytes % 16.7 %; Mean Corpuscular HGB Conc 33.8 g/dL (30-55); Mean Corpuscular Hemoglobin 28.5 pg (27-33); Mean Corpuscular Volume 84.3 fl (82-101); Mean Platelet Volume 9.7 fL (7.4-10.4); Monocytes # 0.9 10^3/uL (0.2-0.9); Monocytes % 8.5 %; Neutrophils # 7.52 10^3/uL (1.8-7.7); Neutrophils % 73.7 %; Nucleated Red Blood Cells % 0 %; Platelet Count 264 10^3/cmm (157-399); Red Blood Count 5.16 10^6/uL (3.85-5.65); White Blood Count 10.21 10^3/uL (3.29-11.43)
[2023-10-18 04:04] LABS: Blood Urea Nitrogen 10 mg/dL (6-20); Calcium 8.5 mg/dL (8.5-10.5); Carbon Dioxide 26 mmol/L (22-29); Chloride 100 mmol/L (98-107); Creatinine Clr Calc Pharmacy 315.4105; Glomerular Filtration Rate 231.6 mL/min (90-130); Glucose 165 mg/dL (65-115); Magnesium 1.9 mg/dL (1.7-2.3); Osmolality Calculated 289 mOsm/kg (285-295); Sodium 138 mmol/L (136-145)
[2023-10-18 04:48] LABS: Glucose Point of Care 178 mg/dL (70-110)
[2023-10-18] MEDS: ondansetron 2 mg/ML SDV 2 mL 4 MG IVP (05:14)
[2023-10-18 08:22] LABS: Glucose Point of Care 168 mg/dL (70-110)
[2023-10-18] MEDS: metoclopramide 5 mg/mL SDV 2 mL 10 MG IVP ×2 (08:31→20:32)
[2023-10-18] MEDS: metformin 500 mg Tablet PO ×2 (09:24→17:09)
[2023-10-18] MEDS: lisinopril 10 mg Tablet PO (09:24)
[2023-10-18] MEDS: insulin lispro 100 unit/1 mL SUBCUT ×4 (09:25→20:31)
[2023-10-18 12:03] LABS: Glucose Point of Care 216 mg/dL (70-110)
--- NOTE | 2023-10-18 12:13 | PM.PN ---
Subjective Subjective: Seen this morning. No acute events overnight. Potassium 3.0. Repleted. Says he feels better. Vitals/I&O/Wt Last Vital Signs Temp 98.8 F 10/18/23 08:00 Pulse 84 10/18/23 10:00 Resp 23 H 10/18/23 10:00 BP 125/72 10/18/23 10:00 Pulse Ox 94 10/18/23 10:00 O2 Del Method Room Air 10/18/23 10:00 10/17/23 10/18/23 10/18/23 22:59 06:59 14:59 Intake Total 1251.583 / 3106.032 1354.833 / 2572.416 1081.25 / 1081.25 Output Total 1400 / 2300 675 / 2975 Balance -148.417 / -843.417 440.833 / -245.476 7207.25 / 1081.25 Weight last 48 hrs Weight 125.781 kg Weight 125.191 kg Physical Exam Narrative: General: Alert oriented x3, patient seen sitting up in bed eating breakfast. HEENT: Normocephalic, atraumatic, EOMI, breathing room air. Cardio: Regular rate rhythm, normal S1-S2, Respiratory: Clear to auscultation bilaterally no wheezes no rhonchi GI: Abdomen soft, nontender, nondistended, bowel sounds +, ventral abdominal hernia appreciated. Behavior: Appropriate and cooperative Extremities: Unremarkable Data 10/18/23 02:46 10/18/23 02:46 Micro: Microbiology 10/16/23 22:30 Urine Culture - Final Urine,Voided 10/16/23 13:18 Blood Culture - Preliminary Blood NEGATIVE TO DATE 10/16/23 13:24 Blood Culture - Preliminary Blood NEGATIVE TO DATE A&P Assessment and plan (1) Intractable vomiting: (2) Dehydration: (3) Metabolic acidosis: (4) Hyperglycemia: Plan #DKA?resolved #New onset diabetes mellitus, insulin-dependent #Nausea vomiting secondary to above #Gallstones #Dehydration, hemoconcentration?resolved #Leukocytosis, possibly stress related?improving #Metabolic acidosis, high anion gap secondary to hyperglycemia?resolved #L4-L5 moderate to severe central canal stenosis. ? Insulin drip stopped ? Lantus 15 units daily started ? Metformin 500 twice daily started - Medium dose intensity sliding scale insulin. ? Zofran for nausea. If ineffective may use Reglan. Discussed with RN. ? Replete potassium as needed, magnesium, phosphorus ? Zofran for nausea ? Diabetic education prior to discharge. Dietitian notified. ? Hemoglobin A1c 10.2 ? Urine drug screen negative, -Troponins negative x 3 ? Lipid panel pending ? TSH 0.98, B12 1721 ? Echo shows EF 6065%. Ascending aorta dilated with diameter 4.22. This will need to be monitored as an outpatient. ? Patient will need EGD outpatient to rule out Vitale's esophagus. ? I will start him on Protonix 40 daily at this time. ? He will need orthopedic surgery referral as an outpatient and evaluation with MRI rule out neural impingement. He has severe moderate to severe central stenosis. ? Patient does not have insurance. He wants to discuss with psychosocial rehabilitation counselor to figure out elliot application so he can get his medications and further treatment. ? Will need vascular surgery referral at discharge for ascending aorta dilation diameter 4.22 cm. This will need to be monitored. ? Patient will need to be set up with a primary care doctor at discharge. Full code DVT prophylaxis: Lovenox 40 daily Transfer to floor today. Attestations Medical Necessity Statement*: Patient needs continued hospitalization for monitoring of blood sugars. We need to ensure blood sugars are stable prior to discharge. Patient has no way of getting his medications and will need meds to beds. He wants to discuss his care with psychosocial rehabilitation counselor therefore plan for discharge on Thursday. Diagnoses Intractable vomiting R11.10 Dehydration E86.0 Metabolic acidosis E87.20 Hyperglycemia R73.9
[2023-10-18] MEDS: potassium chloride ER 20 mEq Tablet 40 MEQ PO (12:22)
--- NOTE | 2023-10-18 13:14 | PC.NURSE ---
Report called to mirella on second floor. Patient set to go to room 256-2.
--- NOTE | 2023-10-18 13:32 | PC.NURSE ---
Patient transferred via wheelchair on room air to medical surgical floor room 256-2,AOX4, see stable vitals charted. All patient belongings with patient and , NS in room, disconnected from patient, Floor nurse getting patient prepared for a shower as patient requested. Paper chart and metformin left with staff at [facility] desk.
[2023-10-18 16:11] LABS: Glucose Point of Care 153 mg/dL (70-110)
[2023-10-18 20:14] LABS: Glucose Point of Care 173 mg/dL (70-110)
[2023-10-18] MEDS: insulin glargine 100 units/1 mL 15 UNIT SUBCUT (20:31)
[2023-10-18] MEDS: atorvastatin 40 mg Tablet PO (20:31)
[2023-10-18] MEDS: enoxaparin 40 mg/0.4 mL Syringe SUBCUT (20:31)
[2023-10-19] MEDS: sodium chloride 0.9% 1,000 ML 125 ML IV ×2 (01:47→09:54)
[2023-10-19 03:49] LABS: Basophils % 0.4 %; Eosinophils # 0.1 10^3/uL (0.0-0.8); Eosinophils % 0.8 %; Hematocrit 41.5 % (37-53); Lymphocytes # 1.4 10^3/uL (0.8-4.8); Lymphocytes % 17.4 %; Mean Corpuscular HGB Conc 33.5 g/dL (30-55); Mean Corpuscular Hemoglobin 28.7 pg (27-33); Mean Corpuscular Volume 85.6 fl (82-101); Monocytes # 0.8 10^3/uL (0.2-0.9); Monocytes % 9.1 %; Neutrophils # 5.95 10^3/uL (1.8-7.7); Neutrophils % 71.8 %; Nucleated Red Blood Cells % 0 %; Platelet Count 231 10^3/cmm (157-399); Red Blood Count 4.85 10^6/uL (3.85-5.65); Red Cell Distribution Width 12.1 % (12.1-15.1); White Blood Count 8.28 10^3/uL (3.29-11.43)
[2023-10-19 04:01] VITALS: BP 108/60; PULSE 69; RESP 17; TEMP 36.6; O2SAT 95
[2023-10-19 04:17] LABS: Anion Gap 14.6 (5-19); Blood Urea Nitrogen 8 mg/dL (6-20); Calcium 8.3 mg/dL (8.5-10.5); Carbon Dioxide 27 mmol/L (22-29); Chloride 96 mmol/L (98-107); Creatinine Clr Calc Pharmacy 311.9168; Glomerular Filtration Rate 231.6 mL/min (90-130); Glucose 185 mg/dL (65-115); Magnesium 1.7 mg/dL (1.7-2.3); Osmolality Calculated 283 mOsm/kg (285-295); Sodium 135 mmol/L (136-145)
[2023-10-19 04:25] LABS: Potassium 2.6 mmol/L (3.5-5.1)
[2023-10-19 06:31] LABS: Glucose Point of Care 167 mg/dL (70-110)
[2023-10-19] MEDS: lidocaine 1% 5 ML in potassium chloride premix 100 ML 26.25 ML IV (07:33)
[2023-10-19 08:00] VITALS: BP 149/76; PULSE 69; RESP 18; TEMP 36.8; O2SAT 94
[2023-10-19] MEDS: metformin 500 mg Tablet PO (08:18)
[2023-10-19] MEDS: lisinopril 10 mg Tablet PO (08:18)
[2023-10-19] MEDS: insulin lispro 100 unit/1 mL SUBCUT ×2 (08:18→12:07)
[2023-10-19] MEDS: ondansetron 2 mg/ML SDV 2 mL 4 MG IVP (09:52)
[2023-10-19 09:59] VITALS: PULSE 77; RESP 15; O2SAT 98
--- NOTE | 2023-10-19 10:28 | P.DS_ITS ---
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 No fever chest pain or shortness of breath. He reported having had 100 pound weight loss in the last few months. Upon arrival in the ER he was found to have evidence of diabetic ketoacidosis. He had a high anion gap, HbA1c level returned at 10. CT of the abdomen and pelvis was overall unremarkable except for signs of esophagitis. He received treatment with insulin drip via DKA protocol. He improved with this intervention. He is currently on 15 units of Lantus at bedtime and medium dose insulin sliding scale. His anger stick on the current regimen are binging between 1 53-2 1 6. He is being discharged with recommendations to continue 15 units of Lantus, 5 units of lispro Premeal and metformin 500 mg twice daily. He has additionally been started on lisinopril 10 mg p.o. daily for hypertension Other new medications on this admission include atorvastatin 40 mg p.o. daily and Protonix 40 mg twice daily. Referrals to general surgery for distal esophagus thickening. Referral to PCP for new diagnosis of DM, HTN and other health maintainence. Physical Exam Narrative: General: No acute distress, AO x3 HEENT: PERRLA, pupils bilaterally equal and reactive, pallors not present Chest: Normal vesicular breath sounds, no added sounds, equal good air entry bilaterally CVS: S1-S2 regular, no murmurs, no tachycardia, no gallops, no rubs Abdomen: Soft, nontender, no organomegaly, bowel sounds present Neuro: No focal deficits, no facial deformity, AO x3, power 5/5 in all limbs Discharge Data Studies Completed and Pending Completed Studies During Hospitalization Category Date Time Status CT abdomen pelvis w con* [id number] Stat Cat Scan 10/15/23 16:25 Completed CV. echo complete* [id number] Routine Ultrasound 10/15/23 21:12 Completed Pending at discharge Category Date Time Status Blood Culture Stat Lab 10/16/23 13:18 Results Sputum Culture and Gram Stain Stat Lab 10/16/23 13:03 Uncollected Radiology Impressions Abdomen/Pelvis CT 10/15/23 16:25 IMPRESSION: 1. No evidence of acute abnormality in the abdomen or pelvis. 2. Wall thickening of the distal esophagus compatible with esophagitis. Consider follow-up outpatient GI evaluation to evaluate for Vitale's esophagus. Laboratory Results WBC 8.28 10^3/uL (3.29-11.43) 10/19/23 02:50 RBC 4.85 10^6/uL (3.85-5.65) 10/19/23 02:50 Hgb 13.90 g/dL (11.27-16.99) 10/19/23 02:50 Hct 41.5 % (37-53) 10/19/23 02:50 MCV 85.6 fl (82-101) 10/19/23 02:50 MCH 28.7 pg (27-33) 10/19/23 02:50 MCHC 33.5 g/dL (30-55) 10/19/23 02:50 RDW 12.1 % (12.1-15.1) 10/19/23 02:50 Plt Count 231 10^3/cmm (157-399) 10/19/23 02:50 MPV 10.0 fL (7.4-10.4) 10/19/23 02:50 Neut % (Auto) 71.8 % 10/19/23 02:50 Lymph % (Auto) 17.4 % 10/19/23 02:50 [place] % (Auto) 9.1 % 10/19/23 02:50 Eos % (Auto) 0.8 % 10/19/23 02:50 Baso % (Auto) 0.4 % 10/19/23 02:50 Neut # (Auto) 5.95 10^3/uL (1.8-7.7) 10/19/23 02:50 Lymph # (Auto) 1.4 10^3/uL (0.8-4.8) 10/19/23 02:50 [place] # (Auto) 0.8 10^3/uL (0.2-0.9) 10/19/23 02:50 Eos # (Auto) 0.1 10^3/uL (0.0-0.8) 10/19/23 02:50 Baso # (Auto) 0.0 10^3/uL (0.0-0.1) 10/19/23 02:50 Nucleated RBC % (auto) 0 % 10/19/23 02:50 Nucleated RBCs # 0.0 /100WBC 10/19/23 02:50 Specimen Type Arterial 10/15/23 17:57 Sample Site Radial, right 10/15/23 17:57 ABG pH 7.39 (7.35-7.45) 10/15/23 17:57 ABG pCO2 27.4 mmHg (35-45) L 10/15/23 17:57 ABG pO2 93.3 mmHg (80.0-100.0) 10/15/23 17:57 ABG PO2/FiO2 Ratio 0 10/15/23 17:57 ABG HCO3 16.5 mmol/L (22-26) L 10/15/23 17:57 ABG Base Excess -6.5 mmol/L (-2.0-2.0) L 10/15/23 17:57 Blas Test Pos 10/15/23 17:57 Hematocrit 54.5 % (42-52) H 10/15/23 17:57 O2 Delivery Device Room air 10/15/23 17:57 FiO2 21.0 % 10/15/23 17:57 Medical Van Driver ID Ed 10/15/23 17:57 Sodium 135 mmol/L (136-145) L 10/19/23 02:50 Potassium 2.6 mmol/L (3.5-5.1) L* 10/19/23 02:50 Chloride 96 mmol/L (98-107) L 10/19/23 02:50 Carbon Dioxide 27 mmol/L (22-29) 10/19/23 02:50 Anion Gap 14.6 (5-19) 10/19/23 02:50 BUN 8 mg/dL (6-20) 10/19/23 02:50 Creatinine 0.4 mg/dL (0.7-1.2) L 10/19/23 02:50 GFR Calculation 231.6 mL/min (90-130) H 10/19/23 02:50 Glucose 185 mg/dL (65-115) H 10/19/23 02:50 POC Glucose 167 mg/dL (70-110) H 10/19/23 06:24 Estimat Average Glucose 246 10/15/23 16:38 Hemoglobin A1c 10.2 % (4.0-6.0) H 10/15/23 16:38 Calculated Osmolality 283 mOsm/kg (285-295) L 10/19/23 02:50 Lactic Acid 2.1 mmol/L (0.5-2.2) 10/15/23 16:38 Lactic Acid (Sepsis) 1.6 mmol/L (0.5-2.2) 10/15/23 19:13 Calcium 8.3 mg/dL (8.5-10.5) L 10/19/23 02:50 Phosphorus 1.8 mg/dL (2.5-4.5) L 10/17/23 03:52 Magnesium 1.7 mg/dL (1.7-2.3) 10/19/23 02:50 Total Bilirubin 1.0 mg/dL (0.15-1.2) 10/16/23 03:18 AST 8 U/L (0-40) 10/16/23 03:18 ALT 11 U/L (0-41) 10/16/23 03:18 Alkaline Phosphatase 109 U/L (40-130) 10/16/23 03:18 Troponin T Baseline 11 ng/L (0-15) 10/15/23 21:31 Troponin T 120 Minute 11.39 ng/L (0-15) 10/15/23 23:14 Delta Troponin T 0.39 ABS# (0-10) 10/15/23 23:14 Troponin T Hi Sens 6Hr 12.06 ng/L (0-15) 10/16/23 03:18 Troponin T Hi Sens 6Hr Delta 1.06 ng/L (0-12) 10/16/23 03:18 C-Reactive Protein 6.1 mg/L (0.0-4.9) H 10/16/23 03:18 Total Protein 6.6 g/dL (6.6-8.7) D 10/16/23 03:18 Albumin 4.1 g/dL (3.5-5.2) 10/16/23 03:18 Globulin 2.5 g/dL (1.3-4.6) 10/16/23 03:18 Triglycerides 161 mg/dL (0-150) H 10/17/23 03:42 Cholesterol 198 mg/dL (0-200) 10/17/23 03:42 LDL Cholesterol, Calc 140 mg/dL (50-129) H 10/17/23 03:42 Total VLDL Cholesterol 32 mg/dL (0-30) H 10/17/23 03:42 HDL Cholesterol 26 mg/dL (60-100) L 10/17/23 03:42 Cholesterol/HDL Ratio 7.62 mg/dL (1.0-5.00) H 10/17/23 03:42 Lipase 14 U/L (13-60) 10/15/23 16:38 Vitamin B12 1721 pg/mL (232-1245) H 10/15/23 16:38 Procalcitonin 0.06 ng/mL (0-0.5) 10/15/23 16:38 TSH 0.98 uIU/mL (0.27-4.20) 10/15/23 16:38 Urine Color Yellow (Yellow) 10/15/23 18:24 Urine Appearance Clear (CLEAR) 10/15/23 18:24 Urine pH 5 (5-7) 10/15/23 18:24 Ur Specific [place] 1.015 (1.005-1.030) 10/15/23 18:24 Urine Protein Trace (Negative) 10/15/23 18:24 Urine Glucose (UA) 4+ (Normal) H 10/15/23 18:24 Urine Ketones 3+ (Negative) H 10/15/23 18:24 Urine Blood Neg (Negative) 10/15/23 18:24 Urine Nitrate Negative (Negative) 10/15/23 18:24 Urine Bilirubin Neg (Negative) 10/15/23 18:24 Urine Urobilinogen Norm mg/dL (Negative) 10/15/23 18:24 Ur Leukocyte Esterase Negative (Negative) 10/15/23 18:24 Urine RBC None /hpf (0-2) 10/15/23 18:24 Urine WBC 0-4 /hpf (0-5) H 10/15/23 18:24 Ur Squamous Epith Cells 5-10 /hpf (0-5) H 10/15/23 18:24 Amorphous Sediment Not Reportable 10/15/23 18:24 Urine Bacteria None /hpf (NONE) 10/15/23 18:24 Urine Mucus None /hpf 10/15/23 18:24 Urine Opiates Screen Negative ng/mL (Negative) 10/15/23 02:28 Ur Barbiturates Screen Negative ng/mL (Negative) 10/15/23 02:28 Ur Phencyclidine Scrn Negative ng/mL (Negative) 10/15/23 02:28 Ur Amphetamines Screen Negative ng/mL (Negative) 10/15/23 02:28 U Benzodiazepines Scrn Negative ng/mL (Negative) 10/15/23 02:28 Urine Cocaine Screen Negative ng/mL (Negative) 10/15/23 02:28 U Marijuana (THC) Screen Positive ng/mL (Negative) H 10/15/23 02:28 Ethyl Alcohol < 10 mg/dL (0-10) 10/15/23 21:31 Serum Ketones Negative (Negative) 10/15/23 16:38 Vitals Last Vital Signs Temp 98.3 F 10/19/23 08:00 Pulse 77 10/19/23 09:59 Resp 15 10/19/23 09:59 BP 149/76 10/19/23 08:00 Pulse Ox 98 10/19/23 09:59 O2 Del Method Room Air 10/19/23 09:59 Discharge Plan Discharge Patient Disposition: Home Condition: Stable Prescriptions: New atorvastatin 40 mg Tablet 40 mg PO BEDTIME Qty: 30 0RF metformin 500 mg Tablet 500 mg PO BIDWM Qty: 60 0RF lisinopril 10 mg Tablet 10 mg PO DAILY Qty: 30 0RF Lantus Solostar U-100 Insulin 100 unit/mL (3 mL) insulin pen 15 unit SUBCUT QPM Qty: 15 0RF Humalog KwikPen Insulin 100 unit/mL insulin pen 5 unit SUBCUT TID 30 Days Qty: 4.5 0RF pantoprazole [Protonix] 40 mg tablet,delayed release (DR/EC) 40 mg PO BID 14 Days Qty: 28 0RF Discharge Orders: Discharge Order (Routine); Ordered 10/19/23 Ordered By: Shilpa Farooq Referrals: Shiva Multani DO [Physician] - 2 weeks (EGD for possible Vitale's esophagus ) George Jordan DO [Physician] - 2 weeks (L4-L5 severe spinal canal stenosis) Preston Dhaliwal MD [Physician] - 10/23/23 2:00 pm (This will be a new patient appointment to establish care. ) Bruno Pollack MD [Physician] - 2 weeks (dilated aortic aneurysm We have notified your physician's clinic of the need for a follow-up appointment to be scheduled. If you have not heard from them within the next 2 business days, please call them directly. ) Wili Lawler MD [Physician] - 4-7 days (new diabetic ) Discharge Diet: Cardiac and Diabetic Discharge Activity: Resume usual activity Patient Instructions: Opioid Safety Discharge Attestations Time Spent in Discharge Care*: greater than 30 min Quality Metrics Clinical Quality Measures [ No reported AMI, CVA or VTE this stay] Coding Level of Care Code Acute Code for Chg Fwd Diagnoses Intractable vomiting R11.10 Dehydration E86.0 Metabolic acidosis E87.20 Hyperglycemia R73.9 DKA (diabetic ketoacidosis) E11.10 Newly diagnosed diabetes E11.9
[2023-10-19 10:34] LABS: Glucose Point of Care 141 mg/dL (70-110)
== END 2023-10-19 12:13 | disposition home or self-care (01) | DRG 638 ==
LOC: ER 19:12 → MEDSURG 19:48 → ICU 23:14 → MEDSURG 10-18 13:30
PROVIDERS: Internal Medicine; Admitting Provider Internal Medicine; Emergency Provider Emergency Medicine; Visit Provider Student in an Organized Health Care Education/Training Program
DX: E11.10 Type 2 diabetes mellitus with ketoacidosis without coma (principal); G93.40 Encephalopathy, unspecified; F12.90 Cannabis use, unspecified, uncomplicated; Z87.891 Personal history of nicotine dependence; E66.01 Morbid (severe) obesity due to excess calories; Z68.36 Body mass index [BMI] 36.0-36.9, adult; K80.20 Calculus of gallbladder without cholecystitis without obstruction; E86.0 Dehydration; M48.061 Spinal stenosis, lumbar region without neurogenic claudication; I10 Essential (primary) hypertension
CPT/HCPCS: 36415; 36416; 36600; 74177; 80048; 80053; 80061; 80306; 80307; 81001; 82009; 82607; 82803; 82962; 83036; 83605; 83690; 83735; 84100; 84145; 84443; 84484; 85025; 86140; 87040; 87086; 93005; 93306; 96361; 96372; 96374; 96376; 99285; J1650; J1815; J2405; J2765; J3480; J7030; J7050; J7070; J7120; Q9967

== ENCOUNTER → 2023-10-23 14:18 | Outpatient (BNVA) | payer SELFPAY | PROVIDERS: PCP Family Medicine Adult Medicine; Visit Provider Family Medicine Adult Medicine | DX: E11.9 Type 2 diabetes mellitus without complications (principal); E86.0 Dehydration | CPT/HCPCS: 80048 ==

== ENCOUNTER → 2023-10-27 14:45 | Outpatient (BNVA) | payer SELFPAY | PROVIDERS: PCP Family Medicine Adult Medicine; Referring Provider Internal Medicine; Visit Provider Orthopaedic Surgery | DX: M54.9 Dorsalgia, unspecified (principal) | CPT/HCPCS: 72110 ==

== ENCOUNTER 2024-02-29 15:57 | Inpatient (IN) | payer SELFPAY ==
[2024-02-29] VITALS (7 sets, daily range): BP systolic 133–169; BP diastolic 82–98; PULSE 80–93; RESP 14–20; TEMP 36.6–36.8; O2SAT 98–100; BMI 38.0
[2024-02-29 16:22] LABS: Basophils % 0.3 %; Eosinophils # 0.1 10^3/uL (0.0-0.8); Eosinophils % 0.5 %; Hematocrit 44.6 % (37-53); Lymphocytes # 1.8 10^3/uL (0.8-4.8); Lymphocytes % 14.8 %; Mean Corpuscular HGB Conc 33.9 g/dL (30-55); Mean Corpuscular Hemoglobin 28.5 pg (27-33); Mean Corpuscular Volume 84.2 fl (82-101); Mean Platelet Volume 9.4 fL (7.4-10.4); Monocytes # 0.6 10^3/uL (0.2-0.9); Monocytes % 4.8 %; Neutrophils # 9.49 10^3/uL (1.8-7.7); Neutrophils % 79.1 %; Nucleated Red Blood Cells % 0 %; Platelet Count 286 10^3/cmm (157-399); Red Cell Distribution Width 12.8 % (12.1-15.1); White Blood Count 12.01 10^3/uL (3.29-11.43)
--- NOTE | 2024-02-29 16:22 | PC.NURSE ---
THIS NURSE ASKED PT IF HE SPECIFICALLY WANTED TO HARM HIMSELF TODAY. PT STATED HE DID TODAY AND ALMOST DID. THIS NURSE NOTIFIED CHARGE NURSE. PT FAMILY WAS ASKED TO WAIT IN THE WAITING ROOM DUE TO THE COMPLAINT AND PROCESS CHANGING TO A PSYCHIATRIC EVALUATION.
--- NOTE | 2024-02-29 16:33 | CTR_ITS ---
PROCEDURE INFORMATION: Exam: CT Abdomen And Pelvis With Contrast Exam date and time: 02/29/2024 5:29 PM Age: 48 years old Clinical indication: Abdominal pain; Prior surgery; Surgery date: 6+ months; Surgery type: Hernia; Additional info: Abdominal pain, nausea, vomiting TECHNIQUE: Imaging protocol: Computed tomography of the abdomen and pelvis with contrast. Radiation optimization: All CT scans at this facility use at least one of these dose optimization techniques: automated exposure control; mA and/or kV adjustment per patient size (includes targeted exams where dose is matched to clinical indication); or iterative reconstruction. Contrast material: OMNI 350; Contrast volume: 100 ml; Contrast route: INTRAVENOUS (IV); COMPARISON: CT abdomen pelvis w con* [id number] 10/15/2023 4:48 PM RADIATION DOSE METRICS: Total DLP (mGy-cm): 1210 FINDINGS: Liver: Normal. No mass. Gallbladder and biliary ducts: Small hyperdensities layering within the dependent portion of the gallbladder likely representing stones/sludge. No wall thickening or pericholecystic inflammatory changes. Pancreas: Normal. No ductal dilation. Spleen: Normal. No splenomegaly. Adrenal glands: Normal. No mass. Kidneys and ureters: Normal. No hydronephrosis. Stomach and bowel: Unremarkable. No obstruction. No mucosal thickening. Appendix: No evidence of appendicitis. Intraperitoneal space: Unremarkable. No free air. No significant fluid collection. Vasculature: Mild atherosclerotic calcifications. Lymph nodes: Unremarkable. No enlarged lymph nodes. Urinary bladder: Unremarkable as visualized. Reproductive: Unremarkable as visualized. Bones/joints: Moderate multilevel spondylosis with a posterior disc bulge at the level of L4-L5 causing at least a moderate degree of canal stenosis. Soft tissues: There are 2 small fat containing ventral wall hernias superiorly adjacent to the umbilicus. Mild surrounding fat stranding. CT/CT abdomen pelvis w con* [id number] IMPRESSION: 1. No acute findings within the abdomen or pelvis. 2. There are 2 small fat containing ventral wall hernias superiorly adjacent to the umbilicus. Mild surrounding fat stranding. 3. Small hyperdensities layering within the dependent portion of the gallbladder likely representing stones/sludge. No wall thickening or pericholecystic inflammatory changes.
[2024-02-29 16:34] LABS: Glucose Point of Care 220 mg/dL (70-110)
--- NOTE | 2024-02-29 16:34 | W.ED.PSYCHS ---
Documented by User: KARSTEN Griffin 02/29/24 16:42 HPI - Psych General: Chief Complaint: Psychiatric Symptoms Stated Complaint: NV Time Seen by Provider: 02/29/24 16:24 Source: patient Mode of arrival: ambulatory Limitations: no limitations History of Present Illness: Patient is a nice 48-year-old male who presents to ED today for a few separate issues. Patient states back in October she was diagnosed with diabetes and DKA. He states he was subsequently hospitalized following this. Patient states I have not been right since . Patient states most days than not he will have extreme nausea and vomiting throughout the day. He intermittently complains of abdominal pains. He states he has been taking his insulin and his blood sugars for the most part are under good control and normally run in the 150s. He does admit to not taking his insulin over the past 2 days. Patient feels like he is mentally exhausted due to him physically not feeling good for several months. He states this morning he did make suicidal statements to his about killing himself with a pistol he had at home. Patient states he never struggled with depression or suicidal ideations prior to him getting ill. He feels like he cannot do this anymore . Of note he does tell me he has smoked marijuana since the age of 18. He tells me this is the only thing that helps with his symptoms. MD complaint: suicidal ideation and feels depressed Onset (ago): day(s) Duration: constant History of same: No Relieving factors: none Exacerbating factors: other (medical issues) Context: significant life stressor Associated psychiatric symptoms: depression and suicidal ideation Associated symptoms: Reports depression and suicidal ideation; Deny auditory hallucinations, visual hallucinations or homicidal ideation Treatments prior to arrival: none If self harm: admits thoughts of self harm and has plan (mentioned using his pistol gun this morning) Review of Systems Const: Denies: fever(s) or chills Card: Denies: chest pain, palpitations, lightheadedness or syncope Resp: Denies: dyspnea GI: Reports: abdominal pain, nausea, vomiting and GI cramping; Denies: hematemesis or diarrhea : Denies: flank pain, difficulty urinating, dysuria, urinary frequency, urinary urgency or urinary hesitancy Musc: Denies: neck pain, back pain, extremity pain or joint pain Skin/Breast: Denies: rash Neuro: Denies: headache(s), numbness in extremities, weakness in extremities or sensory changes Psych: Reports: depression, hopelessness and suicidal ideation; Denies: visual hallucinations, auditory hallucinations or homicidal ideation PFS ED PFSH: Medical History Hypokalemia Newly diagnosed diabetes 10/15/2023 A1C 10.2 No pertinent past medical history Surgical History H/O umbilical hernia repair Family History Father No problems noted. Mother Diabetes mellitus, type 2 Other Diabetes Social History Smoking and tobacco/nicotine status: never used tobacco/nicotine Alcohol intake: never Substance/Drug Use: current Substance/Drug use frequency: daily Household members: family Housing: House Physical Exam Const: COMMON NORMALS: no acute distress, patient oriented x3, no limitations, alert and well nourished GENERAL APPEARANCE: cooperative NUTRITIONAL APPEARANCE: overweight ORIENTATION/CONSCIOUSNESS: Yes awake, Yes oriented to person, Yes oriented to place and Yes oriented to time Eye: COMMON NORMALS: no scleral icterus Resp: COMMON NORMALS: normal respiratory effort and clear to auscultation bilaterally AUSCULTATION: clear to auscultation bilaterally Cardio: COMMON NORMALS: regular rate and regular rhythm RATE: regular rate RHYTHM: regular rhythm GI: COMMON NORMALS: Normal to inspection, nondistended, normoactive bowel sounds present, Soft to palpation, No hepatosplenomegaly present and no masses INSPECTION: Yes normal to inspection AUSCULTATION: Yes normoactive bowel sounds PALPATION: Yes Soft to palpation, Yes Tenderness to palpation present (GI) (diffusely), Yes Guarding due to palpation present (GI), No Rigid due to palpation and Yes No hepatosplenomegaly present : COMMON NORMALS: Yes no CVA tenderness BLADDER/KIDNEY EXAM: Yes no CVA tenderness Back/Pelvis: COMMON NORMALS: no CVA tenderness Extremity: GENERAL: Yes normal exam except as noted Neuro: JOSE COMA SCALE: document GCS findings [place] coma scale eye opening: Spontaneous Jose coma scale verbal response: Orientated [place] coma scale motor response: Obey commands Jose coma scale total score: 15 COMMON NORMALS: patient oriented x3 SENSORIUM/ORIENTATION: Yes alert, Yes oriented to person, Yes oriented to place and Yes oriented to time Skin: COMMON NORMALS: no rashes or lesions noted GENERAL SKIN EXAM: no rashes or lesions noted Course ED course: Patient will require NPU admission for his depression and suicidal ideations. Will go ahead and order additional blood work and CT imaging for his other complaints of nausea, vomiting, abdominal pain. I suspect this could be related to his habitual marijuana use. Once cleared medically plan will be to speak to psychiatric provider on-call. Care will be transferred to Andi Penaloza PA-C at shift change/1700. ES Vital Signs: Vital signs: Vital Signs Temperature 97.9 F 02/29/24 16:04 Pulse Rate 86 02/29/24 18:00 Respiratory Rate 15 02/29/24 18:00 Blood Pressure 158/98 02/29/24 18:00 Pulse Oximetry 100 02/29/24 18:00 Oxygen Delivery Me thod Room Air 02/29/24 18:00 MDM - Psych Lab Data 02/29/24 16:16 02/29/24 16:16 Radiology Impressions Abdomen/Pelvis CT 02/29/24 16:33 IMPRESSION: 1. No acute findings within the abdomen or pelvis. 2. There are 2 small fat containing ventral wall hernias superiorly adjacent to the umbilicus. Mild surrounding fat stranding. 3. Small hyperdensities layering within the dependent portion of the gallbladder likely representing stones/sludge. No wall thickening or pericholecystic inflammatory changes. Laboratory Results WBC 12.01 10^3/uL (3.29-11.43) H 02/29/24 16:16 RBC 5.30 10^6/uL (3.85-5.65) 02/29/24 16:16 Hgb 15.10 g/dL (11.27-16.99) 02/29/24 16:16 Hct 44.6 % (37-53) 02/29/24 16:16 MCV 84.2 fl (82-101) 02/29/24 16:16 MCH 28.5 pg (27-33) 02/29/24 16:16 MCHC 33.9 g/dL (30-55) 02/29/24 16:16 RDW 12.8 % (12.1-15.1) 02/29/24 16:16 Plt Count 286 10^3/cmm (157-399) 02/29/24 16:16 MPV 9.4 fL (7.4-10.4) 02/29/24 16:16 Neut % (Auto) 79.1 % 02/29/24 16:16 Lymph % (Auto) 14.8 % 02/29/24 16:16 [place] % (Auto) 4.8 % 02/29/24 16:16 Eos % (Auto) 0.5 % 02/29/24 16:16 Baso % (Auto) 0.3 % 02/29/24 16:16 Neut # (Auto) 9.49 10^3/uL (1.8-7.7) H 02/29/24 16:16 Lymph # (Auto) 1.8 10^3/uL (0.8-4.8) 02/29/24 16:16 [place] # (Auto) 0.6 10^3/uL (0.2-0.9) 02/29/24 16:16 Eos # (Auto) 0.1 10^3/uL (0.0-0.8) 02/29/24 16:16 Baso # (Auto) 0.0 10^3/uL (0.0-0.1) 02/29/24 16:16 Nucleated RBC % (auto) 0 % 02/29/24 16:16 Nucleated RBCs # 0.0 /100WBC 02/29/24 16:16 Sodium 136 mmol/L (136-145) 02/29/24 16:16 Potassium 3.8 mmol/L (3.5-5.1) 02/29/24 16:16 Chloride 101 mmol/L (98-107) 02/29/24 16:16 Carbon Dioxide 21 mmol/L (22-29) L 02/29/24 16:16 Anion Gap 17.8 (5-19) 02/29/24 16:16 BUN 10 mg/dL (6-20) 02/29/24 16:16 Creatinine 0.5 mg/dL (0.7-1.2) L 02/29/24 16:16 GFR Calculation 179.0 mL/min (90-130) H 02/29/24 16:16 Glucose 211 mg/dL (65-115) H 02/29/24 16:16 POC Glucose 220 mg/dL (70-110) H 02/29/24 16:09 Calculated Osmolality 287 mOsm/kg (285-295) 02/29/24 16:16 Calcium 9.3 mg/dL (8.5-10.5) 02/29/24 16:16 Total Bilirubin 1.1 mg/dL (0.15-1.2) 02/29/24 16:16 AST 11 U/L (0-40) 02/29/24 16:16 ALT 12 U/L (0-41) 02/29/24 16:16 Alkaline Phosphatase 98 U/L (40-130) 02/29/24 16:16 Total Protein 7.6 g/dL (6.6-8.7) 02/29/24 16:16 Albumin 4.6 g/dL (3.5-5.2) 02/29/24 16:16 Globulin 3.0 g/dL (1.3-4.6) 02/29/24 16:16 Lipase 180 U/L (13-60) H 02/29/24 16:16 Salicylates < 0.3 mg/dL (3-10) L 02/29/24 16:16 Acetaminophen < 5.0 ug/mL (10-30) L 02/29/24 16:16 Ethyl Alcohol < 10 mg/dL (0-10) 02/29/24 16:16 Discharge Plan Discharge Condition: Stable Prescriptions: No Action Triple Antibiotic 3.5mg-400 unit- 5,000 unit/gram ointment 1 applic topical DAILY 7 Days Qty: 14 0RF lisinopril 10 mg tablet 10 mg PO DAILY Qty: 90 0RF metformin 500 mg tablet 500 mg PO BIDWM Qty: 180 0RF atorvastatin 40 mg tablet 40 mg PO BEDTIME Qty: 90 0RF insulin lispro [Humalog KwikPen Insulin] 100 unit/mL insulin pen 5 unit SUBCUT TID Qty: 15 0RF Lantus Solostar U-100 Insulin 100 unit/mL (3 mL) insulin pen See Rx Instructions .ROUTE .COMPLEX Qty: 15 0RF Dose Instruction: INJECT 15 units SUBCUTANEOUSLY EVERY EVENING Rx Instructions: INJECT 15 units SUBCUTANEOUSLY EVERY EVENING Referrals: Preston Dhaliwal MD [Primary Care Provider] - Sign Out Sign Out Data: Patient Sign Out occurred on 02/29/24 at 17:07. Patient's care was discussed, and care was transferred from KARSTEN Griffin to KARSTEN Tom. Coding Level of Care Code ED Lining Folder for Chg Fwd Documented by User: KARSTEN Tom 02/29/24 18:10 HPI - Psych General: Chief Complaint: Psychiatric Symptoms Stated Complaint: NV Time Seen by Provider: 02/29/24 16:24 History of Present Illness: Patient is a nice 48-year-old male who presents to ED today for a few separate issues. Patient states back in October he was diagnosed with diabetes and DKA. He states he was subsequently hospitalized following this. Patient states I have not been right since . Patient states most days than not he will have extreme nausea and vomiting throughout the day. He intermittently complains of abdominal pains. He states he has been taking his insulin and his blood sugars for the most part are under good control and normally run in the 150s. He does admit to not taking his insulin over the past 2 days. Patient feels like he is mentally exhausted due to him physically not feeling good for several months. He states this morning he did make suicidal statements to his about killing himself with a pistol he had at home. Patient states he never struggled with depression or suicidal ideations prior to him getting ill. He feels like he cannot do this anymore . Of note he does tell me he has smoked marijuana since the age of 18. He tells me this is the only thing that helps with his symptoms. [facility] ED PFSH: Medical History Hypokalemia Newly diagnosed diabetes 10/15/2023 A1C 10.2 No pertinent past medical history Surgical History H/O umbilical hernia repair Family History Father No problems noted. Mother Diabetes mellitus, type 2 Other Diabetes Social History Smoking and tobacco/nicotine status: never used tobacco/nicotine Alcohol intake: never Substance/Drug Use: current Substance/Drug use frequency: daily Household members: family Housing: House Physical Exam Neuro: JOSE COMA SCALE: document GCS findings [place] coma scale total score: 15 Course Vital Signs: Vital signs: Vital Signs Temperature 97.9 F 02/29/24 16:04 Pulse Rate 86 02/29/24 18:00 Respiratory Rate 15 02/29/24 18:00 Blood Pressure 158/98 02/29/24 18:00 Pulse Oximetry 100 02/29/24 18:00 Oxygen Delivery Sd thod Room Air 02/29/24 18:00 MDM - Psych Medical Decision Making Care of patient transferred to [place] by KARSTEN Griffin at shift change. Patient presented as called ambulance as patient making comments of want to shoot himself due to uncontrolled abdominal pain for the past few months. No psych history reported he is not on any medicat small elevation in white count and lipase, CT did not reveal any acute findings. Rest of his lab work ultimately unremarkable. Spoke with Dr. Horton, who agrees to accept the patient for psychiatric admission. Dr. Chamberse aware of patient's case and will put in admit orders. Lab Data 02/29/24 16:16 02/29/24 16:16 Radiology Impressions Abdomen/Pelvis CT 02/29/24 16:33 IMPRESSION: 1. No acute findings within the abdomen or pelvis. 2. There are 2 small fat containing ventral wall hernias superiorly adjacent to the umbilicus. Mild surrounding fat stranding. 3. Small hyperdensities layering within the dependent portion of the gallbladder likely representing stones/sludge. No wall thickening or pericholecystic inflammatory changes. Laboratory Results WBC 12.01 10^3/uL (3.29-11.43) H 02/29/24 16:16 RBC 5.30 10^6/uL (3.85-5.65) 02/29/24 16:16 Hgb 15.10 g/dL (11.27-16.99) 02/29/24 16:16 Hct 44.6 % (37-53) 02/29/24 16:16 MCV 84.2 fl (82-101) 02/29/24 16:16 MCH 28.5 pg (27-33) 02/29/24 16:16 MCHC 33.9 g/dL (30-55) 02/29/24 16:16 RDW 12.8 % (12.1-15.1) 02/29/24 16:16 Plt Count 286 10^3/cmm (157-399) 02/29/24 16:16 MPV 9.4 fL (7.4-10.4) 02/29/24 16:16 Neut % (Auto) 79.1 % 02/29/24 16:16 Lymph % (Auto) 14.8 % 02/29/24 16:16 [place] % (Auto) 4.8 % 02/29/24 16:16 Eos % (Auto) 0.5 % 02/29/24 16:16 Baso % (Auto) 0.3 % 02/29/24 16:16 Neut # (Auto) 9.49 10^3/uL (1.8-7.7) H 02/29/24 16:16 Lymph # (Auto) 1.8 10^3/uL (0.8-4.8) 02/29/24 16:16 [place] # (Auto) 0.6 10^3/uL (0.2-0.9) 02/29/24 16:16 Eos # (Auto) 0.1 10^3/uL (0.0-0.8) 02/29/24 16:16 Baso # (Auto) 0.0 10^3/uL (0.0-0.1) 02/29/24 16:16 Nucleated RBC % (auto) 0 % 02/29/24 16:16 Nucleated RBCs # 0.0 /100WBC 02/29/24 16:16 Sodium 136 mmol/L (136-145) 02/29/24 16:16 Potassium 3.8 mmol/L (3.5-5.1) 02/29/24 16:16 Chloride 101 mmol/L (98-107) 02/29/24 16:16 Carbon Dioxide 21 mmol/L (22-29) L 02/29/24 16:16 Anion Gap 17.8 (5-19) 02/29/24 16:16 BUN 10 mg/dL (6-20) 02/29/24 16:16 Creatinine 0.5 mg/dL (0.7-1.2) L 02/29/24 16:16 GFR Calculation 179.0 mL/min (90-130) H 02/29/24 16:16 Glucose 211 mg/dL (65-115) H 02/29/24 16:16 POC Glucose 220 mg/dL (70-110) H 02/29/24 16:09 Calculated Osmolality 287 mOsm/kg (285-295) 02/29/24 16:16 Calcium 9.3 mg/dL (8.5-10.5) 02/29/24 16:16 Total Bilirubin 1.1 mg/dL (0.15-1.2) 02/29/24 16:16 AST 11 U/L (0-40) 02/29/24 16:16 ALT 12 U/L (0-41) 02/29/24 16:16 Alkaline Phosphatase 98 U/L (40-130) 02/29/24 16:16 Total Protein 7.6 g/dL (6.6-8.7) 02/29/24 16:16 Albumin 4.6 g/dL (3.5-5.2) 02/29/24 16:16 Globulin 3.0 g/dL (1.3-4.6) 02/29/24 16:16 Lipase 180 U/L (13-60) H 02/29/24 16:16 Salicylates < 0.3 mg/dL (3-10) L 02/29/24 16:16 Acetaminophen < 5.0 ug/mL (10-30) L 02/29/24 16:16 Ethyl Alcohol < 10 mg/dL (0-10) 02/29/24 16:16 All radiology interpretation(s) finalized by discharge Discharge Plan Discharge Condition: Stable Prescriptions: No Action Triple Antibiotic 3.5mg-400 unit- 5,000 unit/gram ointment 1 applic topical DAILY 7 Days Qty: 14 0RF lisinopril 10 mg tablet 10 mg PO DAILY Qty: 90 0RF metformin 500 mg tablet 500 mg PO BIDWM Qty: 180 0RF atorvastatin 40 mg tablet 40 mg PO BEDTIME Qty: 90 0RF insulin lispro [Humalog KwikPen Insulin] 100 unit/mL insulin pen 5 unit SUBCUT TID Qty: 15 0RF Lantus Solostar U-100 Insulin 100 unit/mL (3 mL) insulin pen See Rx Instructions .ROUTE .COMPLEX Qty: 15 0RF Dose Instruction: INJECT 15 units SUBCUTANEOUSLY EVERY EVENING Rx Instructions: INJECT 15 units SUBCUTANEOUSLY EVERY EVENING Referrals: Preston Dhaliwal MD [Primary Care Provider] - Sign Out Sign Out Data: Patient Sign Out occurred on 02/29/24 at 17:07. Patient's care was discussed, and care was transferred from KARSTEN Griffin to KARSTEN Tom. Coding Level of Care Code ED Lining Folder for Roge Andujar
[2024-02-29 16:46] LABS: Alanine Aminotransferase 12 U/L (0-41); Albumin Level 4.6 g/dL (3.5-5.2); Alkaline Phosphatase 98 U/L (40-130); Anion Gap 17.8 (5-19); Aspartate Amino Transferase 11 U/L (0-40); Blood Urea Nitrogen 10 mg/dL (6-20); Calcium 9.3 mg/dL (8.5-10.5); Carbon Dioxide 21 mmol/L (22-29); Chloride 101 mmol/L (98-107); Glucose 211 mg/dL (65-115); Lipase 180 U/L (13-60); Osmolality Calculated 287 mOsm/kg (285-295); Potassium 3.8 mmol/L (3.5-5.1); Sodium 136 mmol/L (136-145); Total Bilirubin 1.1 mg/dL (0.15-1.2); Total Protein 7.6 g/dL (6.6-8.7)
[2024-02-29] MEDS: ondansetron 2 mg/ML SDV 2 mL 4 MG IVP (16:54)
[2024-02-29] MEDS: insulin regular-human 100 units/1 mL 5 UNIT SUBCUT (16:55)
[2024-02-29 17:04] LABS: Acetaminophen < 5.0 ug/mL (10-30); Alcohol Level < 10 mg/dL (0-10); Salicylate < 0.3 mg/dL (3-10)
[2024-02-29] MEDS: iohexol 350 mg/mL 500 mL Btl (per mL) IV (17:35)
--- NOTE | 2024-02-29 18:38 | PC.NURSE ---
WAS IN WAITING ROOM WANTING UPDATE, UPDATE GIVEN.
--- NOTE | 2024-02-29 20:14 | PC.NURSE ---
report called to Dyan @2014
--- NOTE | 2024-02-29 20:25 | PC.NURSE ---
pt iv removed with catheter intact.
--- NOTE | 2024-02-29 21:38 | PC.NURSE ---
pt is stating he doesn't want to go to npu. this nurse notified charge nurse and notified Tremaine SHELLEY.
--- NOTE | 2024-02-29 22:09 | PC.NURSE ---
96 HH Pt served with copy of 96 HH by this RN and security. Pt calm, alert and cooperative.
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
[2024-03-01 00:51] LABS: Glucose Point of Care 182 mg/dL (70-110)
[2024-03-01] MEDS: insulin glargine 100 units/1 mL 15 UNIT SUBCUT ×2 (00:51→20:29)
[2024-03-01 06:00] VITALS: BP 142/81; PULSE 78; RESP 16; TEMP 37.3; O2SAT 96
[2024-03-01 08:15] LABS: Glucose Point of Care 172 mg/dL (70-110)
[2024-03-01] MEDS: insulin lispro 100 unit/1 mL SUBCUT ×3 (08:55→17:35)
[2024-03-01] MEDS: lisinopril 10 mg Tablet PO (08:55)
[2024-03-01] MEDS: metformin 500 mg Tablet PO ×2 (09:04→17:35)
[2024-03-01] MEDS: ondansetron 4 MG Tablet PO ×2 (09:12→20:29)
[2024-03-01 11:57] LABS: Glucose Point of Care 142 mg/dL (70-110)
--- NOTE | 2024-03-01 13:37 | P.NPUHP_ITS ---
Providers/Chief Complaint 2 Admitting Physician: Marvin Mariscal MD Primary Care Provider: Preston Dhaliwal MD Chief Complaint: NV HPI NPU History of Present Illness Say Bosch is a 48 year old male who presented to the emergency department with complaints of persistent nausea and vomiting throughout the day. The patient in the process of the evaluation in the emergency department had stated that he was mentally exhausted and had not been feeling physically well for several months. Patient had stated to his that he was having thoughts of shooting himself with a pistol that he had at home. The patient had been admitted to the neuropsychiatric unit for further evaluation and treatment. He reports that he had never previously suffered from depression but reports that he has been increasingly frustrated at having been diagnosed with diabetes approximately 4 months ago. He had reported that the medications have been making him feel chronically nauseous and he reports feeling tired. 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 He had reported no feelings of hopelessness. He had reported that he had simply felt frustrated and did not feel suicidal currently. He had reported no current plan to hurt himself. He had reported no history of ananda. He reports some change in appetite and reports that he struggles with eating secondary to nausea. He does report that he has been active in his local gun club and states that he has access to numerous weapons. He denies any current feelings of hopelessness. He also reports having chronic problems with managing pain. He had reported that he has struggled at times with managing his new medication regimen and states that he had recently discontinued his antihypertensive and his medication for hypercholesterolemia. He reports no alcohol use or illicit substance use. He does report having used marijuana on a regular basis since the age of 18 recreationally. He had reported that he had been financially stressed but reports other stressors have been less prominent. Inpatient psychiatric history: None Outpatient psychiatric history: None Drug and alcohol history: History of marijuana use since the age of 18. He reports no history of drug or alcohol treatment. He reports being a very infrequent user of alcohol. Allergies: No known drug allergies Medical history: Newly diagnosed diabetes on 10/15/2023, history of DKA Surgical history: History of umbilical hernia repair Current medications: Lisinopril, insulin, atorvastatin, metformin, Legal history: None history: None reported Family psychiatric history: None reported Social history: Patient was born and raised in [place]. He reports no history of sexual physical or emotional abuse. He has been for several years and has 4 children. He had obtained his GED and had no history of learning problems. He reported having a happy childhood. He had reported that he had been working in the [employer] business for more than 20 years. He had reported being active and athletic but reported an enormous change with weight gain and more sedentary lifestyle noted over the past few years. 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 He reports a good relationship with his . Meds NPU Home Medications Medication Instructions Recorded Confirmed Last Taken Type atorvastatin 40 mg tablet 40 mg PO BEDTIME #90 tabs 11/19/23 02/29/24 Unknown Rx lisinopril 10 mg tablet 10 mg PO DAILY #90 tabs 11/19/23 02/29/24 Unknown Rx metformin 500 mg tablet 500 mg PO BIDWM #180 tabs 11/19/23 02/29/24 Unknown Rx neomycin-bacitracn Zn-polymyx 3.5 1 applic topical DAILY 7 days #14 11/30/23 02/29/24 Unknown Rx mg-400 unit-5,000 unit/gram top grams oint (Triple Antibiotic) insulin glargine 100 unit/mL (3 15 unit SUBCUT QPM 02/29/24 02/29/24 02/29/24 History mL) subcutaneous pen (Lantus Solostar U-100 Insulin) insulin lispro 100 unit/mL 5 unit SUBCUT TIDWM 02/29/24 02/29/24 Unknown History subcutaneous pen (Humalog KwikPen (U-100) Insulin) Allergies Allergy/AdvReac Type Severity Reaction Status Date / Time No Known Allergies Allergy Verified 11/30/23 18:34 PFSH NPU 2 PFSH: Medical History Hypokalemia Newly diagnosed diabetes 10/15/2023 A1C 10.2 No pertinent past medical history Surgical History H/O umbilical hernia repair Family History Father No problems noted. Mother Diabetes mellitus, type 2 Other Diabetes Social History Smoking and tobacco/nicotine status: never used tobacco/nicotine Alcohol intake: never Substance/Drug Use: current Substance/Drug use frequency: daily Household members: family Housing: House Mental Status Exam 2 MSE Comments: Patient is a friendly cooperative male who was alert and oriented to person place time and situation. His gait was within normal limits. His hygiene was fair. There was no evidence of any abnormal involuntary motor movements, tics, or tremors appreciated. There was evidence of mild psychomotor retardation. His mood was described as fine. His affect was somewhat restricted and mood incongruent. His thought process was linear logical and goal-directed. Thought content: He had minimized any suicidal or homicidal ideation although he had acknowledged making a statement threatening to kill himself with a gun yesterday. His speech was normal in regards to rate ,rhythm and prosody. There was no evidence of delusional thinking. He did not appear to be responding to internal stimuli. His attention span appeared fair. His recent remote memory were grossly intact. His insight was poor. His judgment was limited. His impulse control appeared guarded at this time. Vitals/I&O/Wt Last Vital Signs Temp 99.1 F 03/01/24 06:00 Pulse 78 03/01/24 06:00 Resp 16 03/01/24 06:00 BP 142/81 03/01/24 06:00 Pulse Ox 96 03/01/24 06:00 O2 Del Method Room Air 03/01/24 06:00 Weight last 48 hrs Weight 127.006 kg Data NPU 02/29/24 16:16 02/29/24 16:16 A&P Assessment and plan (1) Adjustment disorder with depressed mood: Plan 48-year-old male admitted after endorsing suicidal ideation with a plan to shoot himself with a gun reporting his recent onset of his significant chronic medical illnesses being the nidus for some change in mood along with chronic nausea and pain. #1.? Engage patient in individual milieu and group therapy. #2?? Recommend sober living treatment at the highest level of care to which the patient is willing to commit #3???Restart outpatient medications, patient refusing SSRI at this time. #4?? TO-15 minute checks #5?? Will attempt to gather collateral information Involuntary Hold Information 2 96 Hour Hold: 96 Hour Involuntary Admission: Yes 96 Hour Hold Ending Date: 03/04/24 96 Hour Hold Ending Time: 21:30 Attestations NPU 2 Medical Necessity Statement*: Inpatient hospitalization is medically necessary and deemed to ?be ?the clinically appropriate intervention ?at this time.? We will monitor/initiate medications and make changes as indicated.? The patient will be in the hospital for over 2 midnights.? The patient?s likely length of stay 2-3 days. Coding Level of Care Code Acute Code for Chg Fwd Diagnoses Adjustment disorder with depressed mood F43.21
[2024-03-01 14:00] VITALS: BP 110/74; PULSE 90; RESP 16; TEMP 37.1; O2SAT 97
[2024-03-01 17:19] LABS: Glucose Point of Care 157 mg/dL (70-110)
[2024-03-01 20:12] LABS: Glucose Point of Care 167 mg/dL (70-110)
[2024-03-01] MEDS: atorvastatin 40 mg Tablet PO (20:29)
[2024-03-01 21:22] VITALS: BP 109/72; PULSE 89; RESP 16; TEMP 37; O2SAT 99
[2024-03-02 06:00] VITALS: BP 115/70; PULSE 79; RESP 14; TEMP 36.6; O2SAT 97
[2024-03-02] MEDS: lisinopril 10 mg Tablet PO (07:58)
[2024-03-02] MEDS: insulin lispro 100 unit/1 mL SUBCUT ×2 (07:58→11:52)
[2024-03-02] MEDS: metformin 500 mg Tablet PO (07:58)
[2024-03-02 08:01] LABS: Glucose Point of Care 175 mg/dL (70-110)
[2024-03-02] MEDS: ondansetron 4 MG Tablet PO (08:02)
[2024-03-02 11:38] LABS: Glucose Point of Care 145 mg/dL (70-110)
[2024-03-02] MEDS: meclizine 25 mg tablet PO (11:55)
--- NOTE | 2024-03-02 13:05 | W.PM.NPUDCS ---
Diagnoses at Discharge Discharge Diagnosis (1) Adjustment disorder with depressed mood: Status: Acute Reason for Visit Reason for Visit: suicidal ideation. Brief History: History of Present Illness Say Bosch is a 48 year old male who presented to the emergency department with complaints of persistent nausea and vomiting throughout the day. The patient in the process of the evaluation in the emergency department had stated that he was mentally exhausted and had not been feeling physically well for several months. Patient had stated to his that he was having thoughts of shooting himself with a pistol that he had at home. The patient had been admitted to the neuropsychiatric unit for further evaluation and treatment. He reports that he had never previously suffered from depression but reports that he has been increasingly frustrated at having been diagnosed with diabetes approximately 4 months ago. He had reported that the medications have been making him feel chronically nauseous and he reports feeling tired. 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 He had reported no feelings of hopelessness. He had reported that he had simply felt frustrated and did not feel suicidal currently. He had reported no current plan to hurt himself. He had reported no history of ananda. He reports some change in appetite and reports that he struggles with eating secondary to nausea. He does report that he has been active in his local gun club and states that he has access to numerous weapons. He denies any current feelings of hopelessness. He also reports having chronic problems with managing pain. He had reported that he has struggled at times with managing his new medication regimen and states that he had recently discontinued his antihypertensive and his medication for hypercholesterolemia. He reports no alcohol use or illicit substance use. He does report having used marijuana on a regular basis since the age of 18 recreationally. He had reported that he had been financially stressed but reports other stressors have been less prominent. Inpatient psychiatric history: None Outpatient psychiatric history: None Drug and alcohol history: History of marijuana use since the age of 18. He reports no history of drug or alcohol treatment. He reports being a very infrequent user of alcohol. Allergies: No known drug allergies Medical history: Newly diagnosed diabetes on 10/15/2023, history of DKA Surgical history: History of umbilical hernia repair Current medications: Lisinopril, insulin, atorvastatin, metformin, Legal history: None history: None reported Family psychiatric history: None reported Social history: Patient was born and raised in [place]. He reports no history of sexual physical or emotional abuse. He has been for several years and has 4 children. He had obtained his GED and had no history of learning problems. He reported having a happy childhood. He had reported that he had been working in the [employer] business for more than 20 years. He had reported being active and athletic but reported an enormous change with weight gain and more sedentary lifestyle noted over the past few years. 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 He reports a good relationship with his . Hospital Course Hospital Course During the hospitalization, the patient had routine laboratory studies which were within normal limits except for a few outliers.? Additionally, there was a general medical evaluation which was also within normal limits and revealed no new acute processes.? At the time of discharge, lethality was denied.? Mood and anxiety were well managed.? The patient endorsed a plan to avoid all drugs of abuse and follow up with the aftercare recommendations of the treatment team.? The patient was evaluated and deemed to be absent credible lethality and had achieved the maximum benefit from an inpatient hospitalization, and so was discharged. ?Patient was aggreable to outpatient psychotherapy. Involuntary Hold Information 96 Hour Hold: 96 Hour Involuntary Admission: Yes 96 Hour Hold Ending Date: 03/04/24 96 Hour Hold Ending Time: 21:30 Mental Status Exam MSE Comments: Patient is a friendly cooperative male who was alert and oriented to person place time and situation. His gait was within normal limits. His hygiene was fair. There was no evidence of any abnormal involuntary motor movements, tics, or tremors appreciated. There was evidence of mild psychomotor retardation. His mood was described as fine. His affect was brighter at discharge. His thought process was linear logical and goal-directed. Thought content: He had minimized any suicidal or homicidal ideation on discharge. His speech was normal in regards to rate ,rhythm and prosody. There was no evidence of delusional thinking. He did not appear to be responding to internal stimuli. His attention span appeared fair. His recent and remote memory were grossly intact. His insight was limited. His judgment was better. His impulse control appeared fair. Discharge Data Studies Completed and Pending: Completed Studies During Hospitalization Category Date Time Status CT abdomen pelvis w con* [id number] Stat Cat Scan 02/29/24 16:33 Completed Pending at discharge Category Date Time Status Drug Screen, Urin e Stat Lab 02/29/24 16:33 Ordered Radiology Impressions Abdomen/Pelvis CT 02/29/24 16:33 IMPRESSION: 1. No acute findings within the abdomen or pelvis. 2. There are 2 small fat containing ventral wall hernias superiorly adjacent to the umbilicus. Mild surrounding fat stranding. 3. Small hyperdensities layering within the dependent portion of the gallbladder likely representing stones/sludge. No wall thickening or pericholecystic inflammatory changes. Laboratory Results WBC 12.01 10^3/uL (3. 29-11.43) H 02/29/24 16:16 RBC 5.30 10^6/uL (3.8 5-5.65) 02/29/24 16:16 Hgb 15.10 g/dL (11.27 -16.99) 02/29/24 16:16 Hct 44.6 % (37-53) 02/29/24 16:16 MCV 84.2 fl (82-101) 02/29/24 16:16 MCH 28.5 pg (27-33) 02/29/24 16:16 MCHC 33.9 g/dL (30-55) 02/29/24 16:16 RDW 12.8 % (12.1-15.1 ) 02/29/24 16:16 Plt Count 286 10^3/cmm (157 -399) 02/29/24 16:16 MPV 9.4 fL (7.4-10.4) 02/29/24 16:16 Neut % (Auto) 79.1 % 02/29/24 16:16 Lymph % (Auto) 14.8 % 02/29/24 16:16 [place] % (Auto) 4.8 % 02/29/24 16:16 Eos % (Auto) 0.5 % 02/29/24 16:16 Baso % (Auto) 0.3 % 02/29/24 16:16 Neut # (Auto) 9.49 10^3/uL (1.8 -7.7) H 02/29/24 16:16 Lymph # (Auto) 1.8 10^3/uL (0.8- 4.8) 02/29/24 16:16 [place] # (Auto) 0.6 10^3/uL (0.2- 0.9) 02/29/24 16:16 Eos # (Auto) 0.1 10^3/uL (0.0- 0.8) 02/29/24 16:16 Baso # (Auto) 0.0 10^3/uL (0.0- 0.1) 02/29/24 16:16 Nucleated RBC % (a uto) 0 % 02/29/24 16:16 Nucleated RBCs # 0.0 /100WBC 02/29/24 16:16 Sodium 136 mmol/L (136-1 45) 02/29/24 16:16 Potassium 3.8 mmol/L (3.5-5 .1) 02/29/24 16:16 Chloride 101 mmol/L (98-10 7) 02/29/24 16:16 Carbon Dioxide 21 mmol/L (22-29) L 02/29/24 16:16 Anion Gap 17.8 (5-19) 02/29/24 16:16 BUN 10 mg/dL (6-20) 02/29/24 16:16 Creatinine 0.5 mg/dL (0.7-1. 2) L 02/29/24 16:16 GFR Calculation 179.0 mL/min (90- 130) H 02/29/24 16:16 Glucose 211 mg/dL (65-115 ) H 02/29/24 16:16 POC Glucose 145 mg/dL (70-110 ) H 03/02/24 11:35 Calculated Osmolal ity 287 mOsm/kg (285- 295) 02/29/24 16:16 Calcium 9.3 mg/dL (8.5-10 .5) 02/29/24 16:16 Total Bilirubin 1.1 mg/dL (0.15-1 .2) 02/29/24 16:16 AST 11 U/L (0-40) 02/29/24 16:16 ALT 12 U/L (0-41) 02/29/24 16:16 Alkaline Phosphata se 98 U/L (40-130) 02/29/24 16:16 Total Protein 7.6 g/dL (6.6-8.7 ) 02/29/24 16:16 Albumin 4.6 g/dL (3.5-5.2 ) 02/29/24 16:16 Globulin 3.0 g/dL (1.3-4.6 ) 02/29/24 16:16 Lipase 180 U/L (13-60) H 02/29/24 16:16 Salicylates < 0.3 mg/dL (3-10 ) L 02/29/24 16:16 Acetaminophen < 5.0 ug/mL (10-3 0) L 02/29/24 16:16 Ethyl Alcohol < 10 mg/dL (0-10) 02/29/24 16:16 Vitals: Last Vital Signs Temp 97.8 F 03/02/24 06:00 Pulse 79 03/02/24 06:00 Resp 14 03/02/24 06:00 BP 115/70 03/02/24 06:00 Pulse Ox 97 03/02/24 06:00 O2 Del Method Room Air 03/02/24 06:00 Discharge Plan Discharge Patient Disposition: Home Condition: Stable Prescriptions: New ondansetron HCl 4 mg Tablet 4 mg PO Q6H PRN (Reason: Nausea And Vomiting) 14 Days Qty: 30 1RF Continued Triple Antibiotic 3.5mg-400 unit- 5,000 unit/gram ointment 1 applic topical DAILY 7 Days Qty: 14 0RF lisinopril 10 mg tablet 10 mg PO DAILY Qty: 90 0RF metformin 500 mg tablet 500 mg PO BIDWM Qty: 180 0RF atorvastatin 40 mg tablet 40 mg PO BEDTIME Qty: 90 0RF Humalog KwikPen Insulin 100 unit/mL insulin pen 5 unit SUBCUT TIDWM insulin glargine [Lantus Solostar U-100 Insulin] 100 unit/mL (3 mL) insulin pen 15 unit SUBCUT QPM Discharge Orders: Discharge Order (Routine); Ordered 03/02/24 Ordered By: Marvin Mariscal Referrals: [facility] [Other] Preston Dhaliwal MD [Primary Care Provider] - 03/11/24 2:30 pm (follow up) Wili Lawler MD [Physician] - 03/04/24 8:30 am (Follow up) Discharge Diet: Usual diet Discharge Activity: Resume usual activity Patient Instructions: Ondansetron (By mouth), Depression (DC), Suicide Prevention (DC), Opioid Safety Discharge Attestations NPU Time Spent in Discharge Care*: less than 30 min Specific Discharge Activities: Specific discharge activities: educating patient and documenting/other paperwork Coding Level of Care Code Acute Code for Chg Fwd Diagnoses Adjustment disorder with depressed mood F43.21
[2024-03-02 13:41] VITALS: BP 115/70; PULSE 79; RESP 14; TEMP 36.6; O2SAT 97
[2024-03-02 14:01] LABS: Amphetamines Screen Urine Negative (Negative); Barbiturates Screen Urine Negative (Negative); Benzodiazepines Screen Urine Negative (Negative); Cocaine Screen Urine Negative (Negative); Opiate Screen Urine Negative (Negative); PCP Screen Urine Negative (Negative); THC Screen Urine Positive (Negative)
== END 2024-03-02 14:18 | disposition home or self-care (01) | DRG 881 ==
LOC: ER 19:59 → NP 20:13
PROVIDERS: Emergency Medicine; Physician Assistant; Admitting Provider Psychiatry & Neurology Psychiatry; Emergency Provider Physician Assistant; PCP Family Medicine Adult Medicine; Visit Provider Psychiatry & Neurology Psychiatry
DX: F43.21 Adjustment disorder with depressed mood (principal); R45.851 Suicidal ideations; R11.2 Nausea with vomiting, unspecified; E11.9 Type 2 diabetes mellitus without complications; Z79.4 Long term (current) use of insulin; Z79.84 Long term (current) use of oral hypoglycemic drugs
CPT/HCPCS: 36415; 36416; 74177; 80053; 80306; 80307; 82962; 83690; 85025; 96372; 96374; 97165; 99285; J1815; J2405; J8597; Q0162; Q9967

== ENCOUNTER → 2024-03-04 09:38 | Outpatient (BNVA) | payer SELFPAY | PROVIDERS: PCP Family Medicine Adult Medicine; Visit Provider Internal Medicine | DX: E11.9 Type 2 diabetes mellitus without complications (principal); E78.2 Mixed hyperlipidemia; E87.6 Hypokalemia | CPT/HCPCS: 36415; 80053; 83036; 84681; 86337; 86341 ==

== ENCOUNTER 2024-10-24 09:37 | Emergency (ER) | payer SELFPAY ==
[2024-10-24 09:57] VITALS: BP 168/99; PULSE 106; TEMP 36.6; O2SAT 100; BMI 39.0
[2024-10-24 10:00] LABS: Basophils % 0.1 %; Eosinophils % 0.1 %; Hematocrit 48.3 % (37-53); Lymphocytes # 1.7 10^3/uL (0.8-4.8); Lymphocytes % 11.5 %; Mean Corpuscular HGB Conc 33.5 g/dL (30-55); Mean Corpuscular Hemoglobin 28.3 pg (27-33); Mean Corpuscular Volume 84.4 fl (82-101); Mean Platelet Volume 9.6 fL (7.4-10.4); Monocytes # 0.4 10^3/uL (0.2-0.9); Nucleated Red Blood Cells % 0 %; Platelet Count 283 10^3/cmm (157-399); Red Blood Count 5.72 10^6/uL (3.85-5.65); Red Cell Distribution Width 12.4 % (12.1-15.1); White Blood Count 14.48 10^3/uL (3.29-11.43)
[2024-10-24 10:15] LABS: Alanine Aminotransferase 20 U/L (0-41); Alkaline Phosphatase 121 U/L (40-130); Blood Urea Nitrogen 12 mg/dL (6-20); Calcium 9.8 mg/dL (8.5-10.5); Carbon Dioxide 24 mmol/L (22-29); Chloride 98 mmol/L (98-107); Creatinine Clr Calc Pharmacy 247.9545; Globulin 3.1 g/dL (1.3-4.6); Glomerular Filtration Rate 178.2 mL/min (90-130); Glucose 207 mg/dL (65-115); Lipase 13 U/L (13-60); Osmolality Calculated 298 mOsm/kg (285-295); Sodium 141 mmol/L (136-145); Total Bilirubin 1.1 mg/dL (0.15-1.2); Total Protein 8.1 g/dL (6.6-8.7)
[2024-10-24 10:18] LABS: Anion Gap 23.1 (5-19); Aspartate Amino Transferase 17 U/L (0-40); Potassium 4.1 mmol/L (3.5-5.1)
--- NOTE | 2024-10-24 10:50 | W.ED.NAVMDI ---
HPI - Nausea/Vomiting/Diarrhea General: Chief complaint: Nausea/Vomiting/Diarrhea Stated complaint: n,v Time Seen by Provider: 10/24/24 10:02 Source: patient Mode of arrival: ambulatory Limitations: no limitations History of Present Illness: Patient is a 49-year-old male who presents to ED today with a complaint of nausea, dry heaving, and vomiting. Patient states he had an episode of DKA approximately a year ago and ever since then has had intermittent episodes of nausea and vomiting. He states he will get episodes every 2 weeks or so that will last a few days before subsiding on their own. He states he sought medical evaluation today because symptoms seem to be more intense than usual. Patient states upon arrival he is not having any abdominal pain. He reports normal defecation and is passing gas. He does have a known chronic abdominal hernia but states this is not giving him any issues. He is a habitual marijuana user. PMH significant for diabetes and hyperlipidemia as well as lumbar stenosis. He states he has a continual glucose monitor and states his sugars have been running around 140. Last visit with endocrinology was back in March. States he currently does not have a primary care doctor is Dr. Isra addison. MD elicited complaint: nausea and vomiting Pertinent past history: cyclical vomiting Associated nausea: Yes Associated abdominal pain: No Location of pain: None Severity: moderate Exacerbating factors: eating Relieving factors: none Associated symtoms: Reports nausea; Denies chest pain, dysuria, fatigue or malaise Related Data Home Medications ?Medication ?Instructions ?Recorded ?Confirmed amitriptyline 10 mg tablet 10 mg PO BEDTIME 10/24/24 10/24/24 insulin glargine 100 unit/mL (3 40 unit SUBCUT QPM 10/24/24 10/24/24 mL) subcutaneous pen (Lantus Solostar U-100 Insulin) insulin lispro 100 unit/mL 5 unit SUBCUT TID 10/24/24 10/24/24 subcutaneous pen (Humalog KwikPen (U-100) Insulin) metoclopramide HCl 5 mg tablet 5 mg PO TID 10/24/24 10/24/24 Previous Rx's ?Medication ?Instructions ?Recorded atorvastatin 40 mg tablet 40 mg PO BEDTIME #90 tabs 03/23/24 ondansetron HCl 8 mg tablet 8 mg PO Q6H PRN Nausea And 07/19/24 Vomiting 14 days #30 tabs Allergies Allergy/AdvReac Type Severity Reaction Status Date / Time No Known Allergies Allergy Verified 10/24/24 10:01 Review of Systems Const: Denies: fever(s), chills, body aches, fatigue or malaise Card: Denies: chest pain Resp: Denies: dyspnea GI: Reports: nausea and vomiting; Denies: abdominal pain, hematemesis or change in bowel habits : Denies: flank pain, dysuria or hematuria Musc: Denies: neck pain, back pain, extremity pain, extremity swelling or joint swelling Skin/Breast: Denies: rash PFSH ED PFSH: Medical History No pertinent past medical history Surgical History H/O umbilical hernia repair Family History Father No problems noted. Mother Diabetes mellitus, type 2 Other Diabetes Social History Smoking and tobacco/nicotine status: never used tobacco/nicotine Alcohol intake: never Substance/Drug Use: current Substance/Drug use frequency: daily Household members: family Housing: House Physical Exam Const: COMMON NORMALS: patient oriented x3, no limitations, alert and well nourished GENERAL APPEARANCE: cooperative and in distress (appears very nauseous; no active vomiting/dry heaving) NUTRITIONAL APPEARANCE: obese (BMI 39.1) ORIENTATION/CONSCIOUSNESS: Yes awake, Yes oriented to person, Yes oriented to place and Yes oriented to time Eye: COMMON NORMALS: no scleral icterus Resp: COMMON NORMALS: normal respiratory effort and clear to auscultation bilaterally AUSCULTATION: clear to auscultation bilaterally Cardio: COMMON NORMALS: regular rate and regular rhythm RATE: regular rate RHYTHM: regular rhythm GI: COMMON NORMALS: Soft to palpation, non-tender and no masses AUSCULTATION: Yes normoactive bowel sounds PALPATION: Yes Soft to palpation, No Tenderness to palpation present (GI), No Guarding due to palpation present (GI), No Rigid due to palpation and Yes Hernia present (does not appear incarcerated/strangulated) Extremity: COMMON NORMALS: no clubbing, cyanosis or edema, no calf tenderness and no pedal edema GENERAL: Yes normal exam except as noted Neuro: COMMON NORMALS: patient oriented x3 SENSORIUM/ORIENTATION: Yes alert, Yes oriented to person, Yes oriented to place and Yes oriented to time Course Vital Signs: Vital signs: Vital Signs Temperature 97.9 F 10/24/24 09:57 Pulse Rate 92 10/24/24 11:31 Blood Pressure 158/82 10/24/24 11:31 Pulse Oximetry 96 10/24/24 11:31 Oxygen Delivery Me thod Room Air 10/24/24 09:57 MDM - Nausea/Vomiting/Diarrhea Medical Decision Making Patient here for cyclic episodes of vomiting over the past year. No abdominal pain. He is a daily/habitual marijuana user. Discussed possibility of hyperemesis cannabis syndrome. Other differentials could be gastroenteritis and DKA. DKA was ruled out with blood work today. He feels better after IV medications of Ativan and Haldol. He was able to eat and drink while here. He has not had any active episodes of dry heaving or vomiting. Patient feels comfortable going home. Recommend follow-up with primary care. Discussed possibility of GI referral. Return precautions discussed. Medical Records I reviewed the patient's medical records. Lab Data I reviewed the patient's lab results. 10/24/24 09:52 10/24/24 09:52 Laboratory Results WBC 14.48 10^3/uL (3.29-11.43) H 10/24/24 09:52 RBC 5.72 10^6/uL (3.85-5.65) H 10/24/24 09:52 Hgb 16.20 g/dL (11.27-16.99) 10/24/24 09:52 Hct 48.3 % (37-53) 10/24/24 09:52 MCV 84.4 fl (82-101) 10/24/24 09:52 MCH 28.3 pg (27-33) 10/24/24 09:52 MCHC 33.5 g/dL (30-55) 10/24/24 09:52 RDW 12.4 % (12.1-15.1) 10/24/24 09:52 Plt Count 283 10^3/cmm (157-399) 10/24/24 09:52 MPV 9.6 fL (7.4-10.4) 10/24/24 09:52 Neut % (Auto) 85.0 % 10/24/24 09:52 Lymph % (Auto) 11.5 % 10/24/24 09:52 [place] % (Auto) 3.0 % 10/24/24 09:52 Eos % (Auto) 0.1 % 10/24/24 09:52 Baso % (Auto) 0.1 % 10/24/24 09:52 Neut # (Auto) 12.30 10^3/uL (1.8-7.7) H 10/24/24 09:52 Lymph # (Auto) 1.7 10^3/uL (0.8-4.8) 10/24/24 09:52 [place] # (Auto) 0.4 10^3/uL (0.2-0.9) 10/24/24 09:52 Eos # (Auto) 0.0 10^3/uL (0.0-0.8) 10/24/24 09:52 Baso # (Auto) 0.0 10^3/uL (0.0-0.1) 10/24/24 09:52 Nucleated RBC % (auto) 0 % 10/24/24 09:52 Nucleated RBCs # 0.0 /100WBC 10/24/24 09:52 Specimen Type Arterial 10/24/24 11:10 Sample Site Brachial, left 10/24/24 11:10 ABG pH 7.48 (7.35-7.45) H 10/24/24 11:10 ABG pCO2 32.4 mmHg (35-45) L 10/24/24 11:10 ABG pO2 59.2 mmHg (80.0-100.0) L 10/24/24 11:10 ABG PO2/FiO2 Ratio 281 10/24/24 11:10 ABG HCO3 24.1 mmol/L (22-26) 10/24/24 11:10 ABG O2 Saturation 92.7 10/24/24 11:10 ABG Base Excess 1.4 mmol/L (-2.0-2.0) 10/24/24 11:10 Blas Test N/a 10/24/24 11:10 A-a O2 Gradient 6.5 mmHg (5-10) 10/24/24 11:10 Hematocrit 48.2 % (42-52) 10/24/24 11:10 Hgb O2 Saturation 91.4 % (95-100) L 10/24/24 11:10 Carboxyhemoglobin 0.5 %THgb (0.4-20.1) 10/24/24 11:10 Methemoglobin 0.9 % (0.4-1.5) 10/24/24 11:10 Total Hemoglobin 15.7 g/dL (14-18) 10/24/24 11:10 Sodium 143.0 mmol/L (131-143) 10/24/24 11:10 Potassium 3.4 mmol/L (3.5-5.0) L 10/24/24 11:10 Glucose 240.0 mg/dL (70-115) H 10/24/24 11:10 Ionized Calcium 1.1 mmol/L (1.1-1.4) 10/24/24 11:10 O2 Delivery Device Room air 10/24/24 11:10 FiO2 21.0 % 10/24/24 11:10 Clinical Manager Home Care ID [id number] 10/24/24 11:10 Sodium 141 mmol/L (136-145) 10/24/24 09:52 Potassium 4.1 mmol/L (3.5-5.1) 10/24/24 09:52 Chloride 98 mmol/L (98-107) 10/24/24 09:52 Carbon Dioxide 24 mmol/L (22-29) 10/24/24 09:52 Anion Gap 23.1 (5-19) H 10/24/24 09:52 BUN 12 mg/dL (6-20) 10/24/24 09:52 Creatinine 0.5 mg/dL (0.7-1.2) L 10/24/24 09:52 GFR Calculation 178.2 mL/min (90-130) H 10/24/24 09:52 Glucose 207 mg/dL (65-115) H 10/24/24 09:52 Calculated Osmolality 298 mOsm/kg (285-295) H 10/24/24 09:52 Lactic Acid 2.0 mmol/L (0.5-2.2) 10/24/24 10:54 Calcium 9.8 mg/dL (8.5-10.5) 10/24/24 09:52 Total Bilirubin 1.1 mg/dL (0.15-1.2) 10/24/24 09:52 AST 17 U/L (0-40) 10/24/24 09:52 ALT 20 U/L (0-41) 10/24/24 09:52 Alkaline Phosphatase 121 U/L (40-130) 10/24/24 09:52 Total Protein 8.1 g/dL (6.6-8.7) 10/24/24 09:52 Albumin 5.0 g/dL (3.5-5.2) 10/24/24 09:52 Globulin 3.1 g/dL (1.3-4.6) 10/24/24 09:52 Lipase 13 U/L (13-60) 10/24/24 09:52 Serum Ketones Negative (Negative) 10/24/24 09:52 No radiology studies performed this visit Discharge Plan Discharge Patient Disposition: Home Clinical Impression: Cyclic vomiting syndrome Condition: Stable Prescriptions: No Action atorvastatin 40 mg tablet 40 mg PO BEDTIME Qty: 90 1RF ondansetron HCl 8 mg tablet 8 mg PO Q6H PRN (Reason: Nausea And Vomiting) 14 Days Qty: 30 1RF metoclopramide HCl 5 mg tablet 5 mg PO TID amitriptyline 10 mg tablet 10 mg PO BEDTIME insulin lispro [Humalog KwikPen Insulin] 100 unit/mL insulin pen 5 unit SUBCUT TID insulin glargine [Lantus Solostar U-100 Insulin] 100 unit/mL (3 mL) insulin pen 40 unit SUBCUT QPM Discharge Orders: Discharge ED (Routine); Ordered 10/24/24 Ordered By: Cierra Ordaz Referrals: Preston Dhaliwal MD [Primary Care Provider] - Patient Instructions: Cyclic Vomiting Syndrome (ED) Activity Restrictions/Additional Instructions: As we discussed, please follow-up with your primary care provider. We discussed possibly obtaining referral for GI specialist due to the length of your symptoms. We discussed the possibility of a hyperemesis cannabis syndrome. You may return to the emergency department at anytime for worsening symptoms, severe abdominal pain, fevers, generally feeling worse or unwell, or any other concerns you may have. Print Language: Bengali Coding Level of Care Code ED Baker D[employer]nut for Roge Andujar
[2024-10-24 11:13] LABS: Ketone (Acetest) Serum Negative (Negative)
[2024-10-24] MEDS: LORazepam 2 mg/mL INJ 1 mL 1 MG IVP (11:15)
[2024-10-24] MEDS: haloperidol inj 5 mg/mL INJ 1 mL 2.5 MG IVP (11:17)
[2024-10-24] MEDS: sodium chloride 0.9% 1,000 ML 999 ML IV (11:18)
[2024-10-24 11:26] LABS: ABG PCO2 32.4 mmHg (35-45); ABG PH Result 7.48 (7.35-7.45); Alveolar-Arterial Oxygen Gradi 6.5 mmHg (5-10); Arterial Blood Gas Hematocrit 48.2 % (42-52); Base Excess ABG 1.4 mmol/L (-2.0-2.0); Blood Gas Operator Identificat GD; Blood Gas Sample Site Brachial, left; Blood Gas Sample Type Arterial; Carboxyhemoglobin 0.5 %THgb (0.4-20.1); HCO3 ABG 24.1 mmol/L (22-26); HGB O2 Sat 91.4 % (95-100); Ionized Calcium Level - ABG 1.1 mmol/L (1.1-1.4); Methemoglobin 0.9 % (0.4-1.5); Oxygen Device ROOM AIR; Oxygen Saturation ABG 92.7; PO2 ABG 59.2 mmHg (80.0-100.0); PO2 FiO2 Ratio Arterial Blood 281; Potassium Level - ABG 3.4 mmol/L (3.5-5.0); Total Hemoglobin 15.7 g/dL (14-18)
[2024-10-24 11:31] VITALS: BP 158/82; PULSE 92; O2SAT 96
[2024-10-24 13:01] VITALS: BP 103/83; PULSE 98; O2SAT 96
--- NOTE | 2024-10-24 13:09 | PC.NURSE ---
PT REFUSING CATH, UNABLE TO PEE IN URINAL AT THIS TIME.
== END 2024-10-24 13:10 | disposition home or self-care (01) ==
PROVIDERS: Emergency Provider Physician Assistant; PCP Family Medicine Adult Medicine
DX: R11.15 Cyclical vomiting syndrome unrelated to migraine (principal); Z79.4 Long term (current) use of insulin
CPT/HCPCS: 36415; 36600; 80051; 80053; 82009; 82330; 82805; 83605; 83690; 85025; 96374; 96375; 99284; J1630; J2060; J7030

== ENCOUNTER 2024-11-14 00:45 | Emergency (ER) | payer SELFPAY ==
[2024-11-14 00:48] VITALS: BP 142/70; PULSE 79; RESP 15; O2SAT 99; BMI 39.0
--- NOTE | 2024-11-14 00:52 | XRR_ITS ---
PROCEDURE INFORMATION: Exam: XR Chest Exam date and time: 11/14/2024 1:49 AM Age: 49 years old Clinical indication: Hypoglycemia with general weakness. TECHNIQUE: Imaging protocol: Radiologic exam of the chest. Views: 1 view. COMPARISON: None available. FINDINGS: Lungs: Unremarkable. No consolidation. Low lung volumes. Pleural spaces: Unremarkable. No pleural effusion. No pneumothorax. Heart/Mediastinum: Unremarkable. No cardiomegaly. Bones/joints: Unremarkable. XR/XR chest 1V portable [id number] IMPRESSION: No evidence of acute cardiopulmonary process.
--- NOTE | 2024-11-14 00:58 | ECG_ITS ---
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 Measurements Intervals [place]olson Rate: 75 P: 159 SC: 176 QRS: 68 QRSD: 96 T: 143 QT: 404 QTc: 453 Interpretive Statements SINUS RHYTHM WITH OCCASIONAL VENTRICULAR PREMATURE COMPLEXES LOW QRS VOLTAGE IN EXTREMITY LEADS [QRS DEFLECTION < 0.5 mV IN LIMB LEADS] ABNORMAL QRS-T ANGLE [QRS-T AXIS DIFFERENCE > 60] Compared to ECG 10/16/2023 19:31:14 Ventricular premature complex(es) now present Low QRS voltage now present Electronically Signed On 11-14-2024 21:35:50 CDT by Amie Mera M.D. [email or web address]
[2024-11-14] MEDS: dextrose 10% 250 ML 1000 ML IV (01:00)
[2024-11-14] MEDS: ondansetron 2 mg/ML SDV 2 mL 4 MG IVP (01:01)
[2024-11-14 01:04] LABS: Basophils # 0.1 10^3/uL (0.0-0.1); Basophils % 0.8 %; Eosinophils # 0.3 10^3/uL (0.0-0.8); Eosinophils % 2.5 %; Hematocrit 43.7 % (37-53); Lymphocytes % 46.2 %; Mean Corpuscular HGB Conc 32.3 g/dL (30-55); Mean Corpuscular Hemoglobin 28.3 pg (27-33); Mean Corpuscular Volume 87.6 fl (82-101); Mean Platelet Volume 9.3 fL (7.4-10.4); Monocytes # 0.9 10^3/uL (0.2-0.9); Monocytes % 8.3 %; Neutrophils # 4.56 10^3/uL (1.8-7.7); Neutrophils % 41.9 %; Nucleated Red Blood Cells % 0 %; Platelet Count 303 10^3/cmm (157-399); Red Blood Count 4.99 10^6/uL (3.85-5.65); Red Cell Distribution Width 12.9 % (12.1-15.1); White Blood Count 10.88 10^3/uL (3.29-11.43)
[2024-11-14 01:16] LABS: Ketone (Acetest) Serum Negative (Negative)
[2024-11-14 01:22] LABS: Alanine Aminotransferase 21 U/L (0-41); Albumin Level 4.7 g/dL (3.5-5.2); Alkaline Phosphatase 98 U/L (40-130); Anion Gap 17.9 (5-19); Aspartate Amino Transferase 16 U/L (0-40); Blood Urea Nitrogen 15 mg/dL (6-20); Calcium 9.4 mg/dL (8.5-10.5); Carbon Dioxide 23 mmol/L (22-29); Chloride 105 mmol/L (98-107); Creatinine Clr Calc Pharmacy 154.9716; Glomerular Filtration Rate 103.6 mL/min (90-130); Glucose 53 mg/dL (65-115); Lactic Sepsis W/Reflex 2.5 mmol/L (0.5-2.2); Magnesium 2.2 mg/dL (1.7-2.3); Osmolality Calculated 294 mOsm/kg (285-295); Sodium 143 mmol/L (136-145); Total Bilirubin 0.6 mg/dL (0.15-1.2); Total Protein 7.7 g/dL (6.6-8.7)
[2024-11-14 01:35] LABS: Potassium 2.9 mmol/L (3.5-5.1)
[2024-11-14] MEDS: lidocaine 1% 5 ML in potassium chloride premix 100 ML 52.5 ML IV (01:41)
[2024-11-14] MEDS: potassium chloride oral liq 20 mEq/15 mL UDC 40 MEQ PO (01:41)
--- NOTE | 2024-11-14 01:41 | W.ED.RECABL ---
HPI - Recheck/Abnormal Lab/Rx General: Chief Complaint: Recheck/Abnormal Lab/Rx Stated Complaint: Sugar is Dropping Time Seen by Provider: 11/14/24 00:48 History of Present Illness: 49-year-old male with a history of insulin-dependent diabetes. He is on Lantus and NovoLog at home. He takes 40 of Lantus at night. After taking his dose tonight, his blood sugar dropped. He is diaphoretic, nauseated, weak, with a blood sugar of 50 that his could not get up at home despite orange juice, peanut butter and jelly sandwiches, and glucose tabs. He presents here with a blood sugar of 48. He is awake and talking. Related Data Home Medications ?Medication ?Instructions ?Recorded ?Confirmed amitriptyline 10 mg tablet 10 mg PO BEDTIME 10/24/24 10/24/24 insulin glargine 100 unit/mL (3 40 unit SUBCUT QPM 10/24/24 10/24/24 mL) subcutaneous pen (Lantus Solostar U-100 Insulin) insulin lispro 100 unit/mL 5 unit SUBCUT TID 10/24/24 10/24/24 subcutaneous pen (Humalog KwikPen (U-100) Insulin) metoclopramide HCl 5 mg tablet 5 mg PO TID 10/24/24 10/24/24 Previous Rx's ?Medication ?Instructions ?Recorded atorvastatin 40 mg tablet 40 mg PO BEDTIME #90 tabs 03/23/24 ondansetron HCl 8 mg tablet 8 mg PO Q6H PRN Nausea And 07/19/24 Vomiting 14 days #30 tabs Allergies Allergy/AdvReac Type Severity Reaction Status Date / Time No Known Allergies Allergy Verified 10/24/24 10:01 [facility] ED PFS: Medical History No pertinent past medical history Surgical History H/O umbilical hernia repair Family History Father No problems noted. Mother Diabetes mellitus, type 2 Other Diabetes Social History Smoking and tobacco/nicotine status: never used tobacco/nicotine Alcohol intake: never Substance/Drug Use: current Substance/Drug use frequency: daily Household members: family Housing: House Physical Exam Const: GENERAL APPEARANCE: cooperative, lethargic (Mildly), ill appearing and diaphoretic ORIENTATION/CONSCIOUSNESS: Yes lethargic (Mildly) HENMT: COMMON NORMALS: normocephalic, atraumatic and Normal external nose present HEAD & SCALP: normocephalic and atraumatic FACE & SINUS: normal facial exam and face symmetric NOSE: Normal external nose present Eye: COMMON NORMALS: Equal, round and reactive pupils present and EOMs intact bilaterally PUPIL: Yes Equal, round and reactive pupils present Neck/C-Spine: GENERAL: Yes trachea midline Chest: CHEST: Yes Symmetrical chest wall rise Resp: COMMON NORMALS: normal respiratory effort, No retractions, No use of accessory muscles and clear to auscultation bilaterally AUSCULTATION: clear to auscultation bilaterally Cardio: COMMON NORMALS: regular rate and regular rhythm RATE: regular rate RHYTHM: regular rhythm GI: COMMON NORMALS: Normal to inspection, nondistended, normoactive bowel sounds present Extremity: COMMON NORMALS: no pedal edema Neuro: JOSE COMA SCALE: document GCS findings Jose coma scale eye opening: Spontaneous Jose coma scale verbal response: Orientated [place] coma scale motor response: Obey commands Jose coma scale total score: 15 SENSORIUM/ORIENTATION: Yes lethargic (Mildly) SENSORY EXAM: Yes extremities (intact) Psych: COMMON NORMALS: speech normal SPEECH: Yes normal speech Skin: COMMON NORMALS: no rashes or lesions noted GENERAL SKIN EXAM: no rashes or lesions noted Course Vital Signs: Vital signs: Vital Signs Pulse Rate 72 11/14/24 04:19 Respiratory Rate 15 11/14/24 00:48 Blood Pressure 116/83 11/14/24 04:19 Pulse Oximetry 92 11/14/24 04:19 Oxygen Delivery Me thod Room Air 11/14/24 00:48 MDM - Recheck/Abnormal Lab/Rx Medical Decision Making Blood sugar 48 on arrival with serum testing of 43. Potassium is low. His is concerned that he may have reached for his NovoLog, instead of his Lantus which is certainly reasonable. He has no history of vomiting or diarrhea recently, although was in last week for those symptoms. His creatinine is 0.8. He is receiving potassium supplementation. D10, 250 mL liter bolus, blood sugars currently 199. Potassium is significantly low, 2.9. Indicative of accidental insulin overdose. He is given IV and oral potassium to replete. Sugars staying above 200 at this point. He has walked in the ER. He is feeling much better. He is no longer diaphoretic. Mental status is normal. He will be allowed discharge home. He is to keep track of his sugar today, very closely every 2-3 hours. He will could eat sugary drinks, glucose tabs, etc. on him in case his sugar drops. He is to return for any worsening symptoms. Lab Data 11/14/24 00:59 11/14/24 00:59 Radiology Impressions Chest X-Ray 11/14/24 00:52 IMPRESSION: No evidence of acute cardiopulmonary process. Laboratory Results WBC 10.88 10^3/uL (3.29-11.43) 11/14/24 00:59 RBC 4.99 10^6/uL (3.85-5.65) 11/14/24 00:59 Hgb 14.10 g/dL (11.27-16.99) 11/14/24 00:59 Hct 43.7 % (37-53) 11/14/24 00:59 MCV 87.6 fl (82-101) 11/14/24 00:59 MCH 28.3 pg (27-33) 11/14/24 00:59 MCHC 32.3 g/dL (30-55) 11/14/24 00:59 RDW 12.9 % (12.1-15.1) 11/14/24 00:59 Plt Count 303 10^3/cmm (157-399) 11/14/24 00:59 MPV 9.3 fL (7.4-10.4) 11/14/24 00:59 Neut % (Auto) 41.9 % 11/14/24 00:59 Lymph % (Auto) 46.2 % 11/14/24 00:59 Navarro % (Auto) 8.3 % 11/14/24 00:59 Eos % (Auto) 2.5 % 11/14/24 00:59 Baso % (Auto) 0.8 % 11/14/24 00:59 Neut # (Auto) 4.56 10^3/uL (1.8-7.7) 11/14/24 00:59 Lymph # (Auto) 5.0 10^3/uL (0.8-4.8) H 11/14/24 00:59 Navarro # (Auto) 0.9 10^3/uL (0.2-0.9) 11/14/24 00:59 Eos # (Auto) 0.3 10^3/uL (0.0-0.8) 11/14/24 00:59 Baso # (Auto) 0.1 10^3/uL (0.0-0.1) 11/14/24 00:59 Nucleated RBC % (auto) 0 % 11/14/24 00:59 Nucleated RBCs # 0.0 /100WBC 11/14/24 00:59 Sodium 143 mmol/L (136-145) 11/14/24 00:59 Potassium 2.9 mmol/L (3.5-5.1) L 11/14/24 00:59 Chloride 105 mmol/L (98-107) 11/14/24 00:59 Carbon Dioxide 23 mmol/L (22-29) 11/14/24 00:59 Anion Gap 17.9 (5-19) 11/14/24 00:59 BUN 15 mg/dL (6-20) 11/14/24 00:59 Creatinine 0.8 mg/dL (0.7-1.2) 11/14/24 00:59 GFR Calculation 103.6 mL/min (90-130) 11/14/24 00:59 Glucose 53 mg/dL (65-115) L 11/14/24 00:59 POC Glucose 209 mg/dL (70-110) H 11/14/24 04:36 Calculated Osmolality 294 mOsm/kg (285-295) 11/14/24 00:59 Lactic Acid 2.5 mmol/L (0.5-2.2) H 11/14/24 00:59 Lactic Acid (Sepsis) 1.8 mmol/L (0.5-2.2) 11/14/24 03:07 Calcium 9.4 mg/dL (8.5-10.5) 11/14/24 00:59 Magnesium 2.2 mg/dL (1.7-2.3) 11/14/24 00:59 Total Bilirubin 0.6 mg/dL (0.15-1.2) 11/14/24 00:59 AST 16 U/L (0-40) 11/14/24 00:59 ALT 21 U/L (0-41) 11/14/24 00:59 Alkaline Phosphatase 98 U/L (40-130) 11/14/24 00:59 Troponin T Baseline 14 ng/L (0-15) 11/14/24 00:59 Total Protein 7.7 g/dL (6.6-8.7) 11/14/24 00:59 Albumin 4.7 g/dL (3.5-5.2) 11/14/24 00:59 Globulin 3.0 g/dL (1.3-4.6) 11/14/24 00:59 Urine Color Yellow (Yellow) 11/14/24 04:06 Urine Appearance Clear (CLEAR) 11/14/24 04:06 Urine pH 5 (5-7) 11/14/24 04:06 Ur Specific Cook 1.015 (1.005-1.030) 11/14/24 04:06 Urine Protein Neg (Negative) 11/14/24 04:06 Urine Glucose (UA) 4+ (Normal) H 11/14/24 04:06 Urine Ketones Negative (Negative) 11/14/24 04:06 Urine Blood Neg (Negative) 11/14/24 04:06 Urine Nitrate Negative (Negative) 11/14/24 04:06 Urine Bilirubin Neg (Negative) 11/14/24 04:06 Urine Urobilinogen Norm mg/dL (Negative) 11/14/24 04:06 Ur Leukocyte Esterase Negative (Negative) 11/14/24 04:06 Amorphous Sediment Not Reportable 11/14/24 04:06 Urine Opiates Screen Negative ng/mL (Negative) 11/14/24 04:06 Ur Barbiturates Screen Negative ng/mL (Negative) 11/14/24 04:06 Ur Phencyclidine Scrn Negative ng/mL (Negative) 11/14/24 04:06 Ur Amphetamines Screen Negative ng/mL (Negative) 11/14/24 04:06 U Benzodiazepines Scrn Negative ng/mL (Negative) 11/14/24 04:06 Urine Cocaine Screen Negative ng/mL (Negative) 11/14/24 04:06 U Marijuana (THC) Screen Positive ng/mL (Negative) H 04/14/25 04:06 Ethyl Alcohol < 10 mg/dL (0-10) 11/14/24 00:59 Serum Ketones Negative (Negative) 11/14/24 00:59 All radiology interpretation(s) finalized by discharge Discharge Plan Discharge Patient Disposition: Home Clinical Impression: Hypoglycemia Condition: Stable Prescriptions: No Action atorvastatin 40 mg tablet 40 mg PO BEDTIME Qty: 90 1RF ondansetron HCl 8 mg tablet 8 mg PO Q6H PRN (Reason: Nausea And Vomiting) 14 Days Qty: 30 1RF metoclopramide HCl 5 mg tablet 5 mg PO TID amitriptyline 10 mg tablet 10 mg PO BEDTIME insulin lispro [Humalog KwikPen Insulin] 100 unit/mL insulin pen 5 unit SUBCUT TID insulin glargine [Lantus Solostar U-100 Insulin] 100 unit/mL (3 mL) insulin pen 40 unit SUBCUT QPM Discharge Orders: Discharge ED (Routine); Ordered 11/14/24 Ordered By: Dick Canada Patient Instructions: Hypoglycemia in a Person with Diabetes (ED), Opioid Safety, Pain Management Activity Restrictions/Additional Instructions: Check your blood sugar often today, every 2-3 hours. Make sure you have glucose tabs and/or something sugar you can take if your blood sugar is sinking. Return for persistent low blood sugars that are symptomatic with sweating, nausea, vomiting, lethargy, etc. See your doctor this week if your blood sugar is continuing to remain low. Print Language: Angolan Coding Level of Care Code ED [employer] for Roge Andujar
[2024-11-14 01:42] LABS: Glucose Point of Care 199 mg/dL (70-110)
[2024-11-14 02:24] VITALS: BP 93/60; PULSE 66; O2SAT 91
[2024-11-14 02:42] LABS: Glucose Point of Care 259 mg/dL (70-110)
[2024-11-14] MEDS: sodium chloride 0.9% 500 ML 999 ML IV (02:43)
[2024-11-14 02:49] LABS: Reflex Lactate Order REFLEX LACTIC ORDERD
[2024-11-14 03:00] LABS: Troponin(5th) Baseline 14 ng/L (0-15)
[2024-11-14 03:02] LABS: Alcohol Level < 10 mg/dL (0-10)
[2024-11-14 03:10] LABS: Glucose Point of Care 219 mg/dL (70-110)
[2024-11-14 03:24] VITALS: BP 164/96; PULSE 78; O2SAT 94
[2024-11-14] MEDS: potassium chloride ER 20 mEq Tablet 40 MEQ PO (03:28)
[2024-11-14 03:49] LABS: Lactic Acid level (Lactate) 1.8 mmol/L (0.5-2.2)
[2024-11-14 04:10] LABS: Add Urine Microscopic? NO
[2024-11-14 04:12] LABS: Add Urine Culture? No; Bilirubin Urine Neg (Negative); Blood Urine Neg (Negative); Charge for UA Resulting for Rev; Glucose Urine UA 4+ (Normal); Ketones Urine Negative (Negative); Leukocyte Esterase Urine Negative (Negative); Nitrate Urine Negative (Negative); Protein Urine Neg (Negative); Specific Gravity, Urine 1.015 (1.005-1.030); Urine Appearance Clear (CLEAR); Urine Color Yellow (Yellow); Urobilinogen Urine Norm (Negative); pH Urine 5 (5-7)
[2024-11-14 04:19] VITALS: BP 116/83; PULSE 72; O2SAT 92
[2024-11-14 04:20] LABS: Amphetamines Screen Urine Negative (Negative); Barbiturates Screen Urine Negative (Negative); Benzodiazepines Screen Urine Negative (Negative); Cocaine Screen Urine Negative (Negative); Opiate Screen Urine Negative (Negative); PCP Screen Urine Negative (Negative); THC Screen Urine Positive (Negative)
[2024-11-14 04:39] LABS: Glucose Point of Care 209 mg/dL (70-110)
== END 2024-11-14 05:08 | disposition home or self-care (01) ==
PROVIDERS: Emergency Provider Emergency Medicine
DX: E11.649 Type 2 diabetes mellitus with hypoglycemia without coma (principal); Z79.4 Long term (current) use of insulin
CPT/HCPCS: 36415; 36416; 71045; 80053; 80306; 80307; 81003; 82009; 82962; 83605; 83735; 84484; 85025; 93005; 96361; 96374; 96375; 99285; J2405; J3480; J7040; J7799; J9999